=== PATIENT | male | born 1975 | race Caucasian/White ===

== ENCOUNTER 2016-12-26 12:47 | Observation (INO) | payer MEDICARE ==
[~2016-12-26] VITALS: Ht 170.2 cm; Wt 66.0 kg
[~2016-12-26 12:47] MED LIST: AMLO10 PO; CLON.2 PO; HYDR-3129 PO; LABE100 PO; TUMS500C PO; XANA0.5T PO
[2016-12-26 12:49] VITALS: BP 178/85; PULSE 92; RESP 18; TEMP 98.6; O2SAT 99
--- NOTE | 2016-12-26 12:53 | PD ---
Physical Exam Date Seen by Provider: December 26, 2016 Time Seen by Provider: 12:51 Narrative 41 year old male presents to the emergency department for evaluation of shortness of breath, anxiety. He moved here from [place] on Saturday. He has history of ESRD and is on hemodialysis. He is to get dialysis Saturday, Saturday, Saturday. Last dialysis was 12-19-2016. Vital signs reviewed. Patient awaiting bed placement. Data Data Last Documented VS Vital Signs Date Time Temp Pulse Resp B/P Pulse Ox O2 Delivery O2 Flow Rate FiO2 12/26/16 12:49 98.6 92 18 178/85 99 MDM Supervised Visit with FANY: Gena Ontiveros December 26, 2016 12:53
[2016-12-26 13:14] VITALS: BP 159/79; PULSE 87; RESP 18; O2SAT 100; O2SAT 98
[2016-12-26] MEDS ORDERED: SODIUM CHLORIDE 0.9% FLUSH 10 ML FLUSH IVF PRN (13:15)
--- NOTE | 2016-12-26 13:16 | PD ---
HPI Chief Complaint: Complaint Time Seen by Provider: 13:14 Travel History International Travel<30 days: No Contact w/Intl Traveler<30days: No Traveled to known affect area: No History of Present Illness HPI 41-year-old male with history of end-stage renal disease on dialysis, recently moved to the area from [place], and states that he thought his dialysis has been set up but it is not, he states he had followed up with Dr. Don in the past. He has not had a dialysis since Saturday. He states that he is getting nervous that he is going to run to do trouble with his renal failure. He states he has been having some mild shortness of breath and tingling all over. He denies chest pains, vomiting, or other issues. Modifying Factors: None Associated Signs & Symptoms: Needs dialysis, paresthesias, shortness of breath Risk Factors: Previous history of anxiety attacks, end-stage renal on dialysis, missed dialysis since Saturday PFS Past Medical History Anxiety: Yes Cancer: No Cardiovascular Problems: Yes (HTN) Congestive Heart Failure: Yes Dialysis: Yes (M,W,F) Diminished Hearing: No Endocrine: No Genitourinary: Yes Hypertension: Yes Immune Disorder: No Implanted Vascular Access Dvce: Yes (left forearm fisula graft ) Musculoskeletal: No Neurologic: No Psychiatric: Yes Reproductive: No Respiratory: No Immunizations Current: Yes Renal Failure: Yes (4TH STAGE RENAL DISEASE) Shingles: Yes Past Surgical History Appendectomy: Yes Endocrine Surgery: Yes (right kidney transplant in 96 removed in 98 nonfunctional) Thoracic Surgery: Yes (PARATHYROID REMOVED) Other Surgery: Yes (several AV fisula's bilat arms-only current functional one is left FA) Social History Alcohol Use: No Tobacco Use: Yes (1 PPD) Substance Use: No Allergies-Medications (Allergen,Severity, Reaction): Coded Allergies: Cipro (Verified Allergy, Severe, THROAT SWELLS, 12/26/16) Reported Meds & Prescriptions Reported Meds & Active Scripts Active Reported Tums (Calcium Carbonate) 500 Mg Chew 500 Mg PO BID PRN Xanax 0.5 mg (Alprazolam) Alprazolam 0.5 mg Tab 0.5 Mg PO BID TAKES HS AND ON DIALYSIS DAYS [place] 10/325 (Hydrocodone-Acetaminophen 10325) 1 Tab Tab 1 Tab PO TID PRN Trandate 100 mg Tab (Labetalol HCl) 100 Mg Tab 50 Mg PO DAILY Catapres 0.2 mg (Clonidine HCl) 0.2 Mg Tab 0.2 Mg PO DIRECTED PRN Norvasc (Amlodipine Besylate) 10 Mg Tab 10 Mg PO DAILY Review of Systems Except as stated in HPI: all other systems reviewed are Neg Physical Exam Narrative GENERAL: Well-developed middle age L patient currently in mild distress at rest. Awake and oriented 3. SKIN: Focused skin assessment warm/dry. HEAD: Atraumatic. Normocephalic. EYES: Pupils equal and round. No scleral icterus. No injection or drainage. ENT: No nasal bleeding or discharge. Mucous membranes pink and moist. NECK: Trachea midline. No JVD. CARDIOVASCULAR: Regular rate and rhythm. No murmur appreciated. RESPIRATORY: No accessory muscle use. Clear to auscultation. Breath sounds equal bilaterally. GASTROINTESTINAL: Abdomen soft, non-tender, nondistended. Hepatic and splenic margins not palpable. MUSCULOSKELETAL: No obvious deformities. No clubbing. No cyanosis. No edema. NEUROLOGICAL: Awake and alert. No obvious cranial nerve deficits. Motor grossly within normal limits. Normal speech. PSYCHIATRIC: Appropriate mood and affect; insight and judgment normal. Data Data Last Documented VS Vital Signs Date Time Temp Pulse Resp B/P Pulse Ox O2 Delivery O2 Flow Rate FiO2 12/26/16 13:14 98 Room Air 12/26/16 13:14 87 18 159/79 12/26/16 12:49 98.6 Orders Complete Blood Count With Diff (12/26/16 13:08) Comprehensive Metabolic Panel (12/26/16 13:08) B-Type Natriuretic Peptide (12/26/16 13:08) Act Partial Throm Time (Ptt) (12/26/16 13:08) Prothrombin Time / Inr (Pt) (12/26/16 13:08) Iv Access Insert/Monitor (12/26/16 13:08) Electrocardiogram (12/26/16 13:08) Ecg Monitoring (12/26/16 13:08) Oximetry (12/26/16 13:08) Oxygen Administration (12/26/16 13:08) Chest, Single Ap (12/26/16 13:08) Sodium Chloride 0.9% Flush (Ns Flush) (12/26/16 13:15) Consult Nephrology (12/26/16 ) Admit Order (Ed Use Only) (12/26/16 14:31) Labs Laboratory Tests Test 12/26/16 12/26/16 13:13 13:50 Prothrombin Time 12.1 SEC Prothromb Time International 1.1 RATIO Ratio Activated Partial 33.3 SEC Thromboplast Time Sodium Level 134 MEQ/L Potassium Level 5.6 MEQ/L Chloride Level 95 MEQ/L Carbon Dioxide Level 23.5 MEQ/L Anion Gap 16 MEQ/L Blood Urea Nitrogen 76 MG/DL Creatinine 13.89 MG/DL Estimat Glomerular Filtration 4 ML/MIN Rate Random Glucose 99 MG/DL Calcium Level 6.0 MG/DL Protein Corrected Calcium 5.9 MG/DL Total Bilirubin 0.5 MG/DL Aspartate Amino Transf 18 U/L (AST/SGOT) Alanine Aminotransferase 15 U/L (ALT/SGPT) Alkaline Phosphatase 80 U/L B-Type Natriuretic Peptide 788 PG/ML Total Protein 7.6 GM/DL Albumin 3.6 GM/DL White Blood Count 3.9 TH/MM3 Red Blood Count 3.05 MIL/MM3 Hemoglobin 10.1 GM/DL Hematocrit 29.5 % Mean Corpuscular Volume 96.7 FL Mean Corpuscular Hemoglobin 33.1 PG Mean Corpuscular Hemoglobin 34.3 % Concent Red Cell Distribution Width 14.9 % Platelet Count 106 TH/MM3 Mean Platelet Volume 7.8 FL Neutrophils (%) (Auto) 61.4 % Lymphocytes (%) (Auto) 23.0 % Monocytes (%) (Auto) 9.3 % Eosinophils (%) (Auto) 5.5 % Basophils (%) (Auto) 0.8 % Neutrophils # (Auto) 2.4 TH/MM3 Lymphocytes # (Auto) 0.9 TH/MM3 Monocytes # (Auto) 0.4 TH/MM3 Eosinophils # (Auto) 0.2 TH/MM3 Basophils # (Auto) 0.0 TH/MM3 CBC Comment DIFF FINAL Differential Comment MDM Medical Decision Making Medical Screen Exam Complete: Yes Emergency Medical Condition: Yes Medical Record Reviewed: Yes Interpretation(s) EKG shows normal sinus rhythm with peak T waves and a rate of 80 bpm. Indicative of hyperkalemia. Laboratory Tests Test 12/26/16 12/26/16 13:13 13:50 Prothrombin Time 12.1 SEC (9.8-11.6) Activated Partial 33.3 SEC Thromboplast Time (24.3-30.1) Sodium Level 134 MEQ/L (136-145) Potassium Level 5.6 MEQ/L (3.5-5.1) Chloride Level 95 MEQ/L (98-107) Anion Gap 16 MEQ/L (5-15) Blood Urea Nitrogen 76 MG/DL (7-18) Creatinine 13.89 MG/DL (0.60-1.30) Estimat Glomerular Filtration 4 ML/MIN (>89) Rate Calcium Level 6.0 MG/DL (8.5-10.1) Protein Corrected Calcium 5.9 MG/DL (8.5-10.1) B-Type Natriuretic Peptide 788 PG/ML (0-100) White Blood Count 3.9 TH/MM3 (4.0-11.0) Red Blood Count 3.05 MIL/MM3 (4.50-5.90) Hemoglobin 10.1 GM/DL (13.0-17.0) Hematocrit 29.5 % (39.0-51.0) Platelet Count 106 TH/MM3 (150-450) Monocytes (%) (Auto) 9.3 % (0.0-8.0) Eosinophils (%) (Auto) 5.5 % (0.0-4.0) Lymphocytes # (Auto) 0.9 TH/MM3 (1.0-4.8) Last 24 hours Impressions Chest X-Ray 12/26/16 1308 Signed Impressions: Service Date/Time: Monday, December 26, 2016 13:33 - CONCLUSION: No acute disease. Hadley Mobley MD Differential Diagnosis Shortness of breath, paresthesias, needs dialysisevaluate for metabolic issues and acute renal failure Narrative Course Chest x-ray shows no signs of acute pulmonary distress. His EKG shows peaked T' s and his potassium is 5.6. His BUN/creatinine creatinine is quite elevated as well. Patient obviously needs dialysis. Case was discussed with Dr. Don who agrees to dialyze the patient. He states that the patient should be medically admitted. Case is discussed with family practice resident service for admission. Diagnosis Primary Impression: ESRD (end stage renal disease) on dialysis Additional Impressions: Hypocalcemia Hyperkalemia Admitting Information Admitting Physician Requests: Admit Neil June MD December 26, 2016 13:16
[2016-12-26 13:45] LABS: APTT (PATIENT) 33.3 SEC (24.3-30.1); INTERNATIONAL NORMALIZED RATIO 1.1 RATIO; PROTHROMBIN TIME - PATIENT 12.1 SEC (9.8-11.6)
[2016-12-26 13:55] LABS: BICARBONATE 23.5 MEQ/L (21.0-32.0); POTASSIUM 5.6 MEQ/L (3.5-5.1); TOTAL BILIRUBIN ADULT 0.5 MG/DL (0.2-1.0)
[2016-12-26 14:01] LABS: CALCIUM-PROTEIN CORRECTED 5.9 MG/DL (8.5-10.1)
--- NOTE | 2016-12-26 14:12 | RADRPT ---
EXAM DATE/TIME: 12/26/2016 13:33 [facility] COMPARISON: CHEST SINGLE AP, July 12, 2014, 15:12. INDICATIONS : Short of breath for several days. MEDICAL HISTORY : Renal disease, end stage. Congestive heart failure. Hypertension. SURGICAL HISTORY : Appendectomy. Nephrectomy, right. ENCOUNTER: Initial ACUITY: 4 - 6 days PAIN SCORE: 0/10 LOCATION: Bilateral chest FINDINGS: A single view of the chest demonstrates the lungs to be symmetrically aerated without evidence of mas s, infiltrate or effusion. The cardiomediastinal contours are unremarkable. Osseous structures are intact. Scoliosis. CONCLUSION: No acute disease. Hadley Mobley MD on December 26, 2016 at 14:10 Board Certified Radiologist. This report was verified electronically.
[2016-12-26 14:13] LABS: AUTOMATED NEUTROPHIL # 2.4 TH/MM3 (1.8-7.7); BASOPHIL % 0.8 % (0.0-2.0); EOSINOPHIL # 0.2 TH/MM3 (0-0.4); EOSINOPHIL % 5.5 % (0.0-4.0); HEMATOCRIT 29.5 % (39.0-51.0); HEMO FLAGS DIFF FINAL; LYMPHOCYTE # 0.9 TH/MM3 (1.0-4.8); MEAN CELL VOLUME 96.7 FL (80.0-100.0); MEAN CORPUSCULAR HEMOGLOBIN 33.1 PG (27.0-34.0); MEAN CORPUSCULAR HGB CONC 34.3 % (32.0-36.0); MONO % 9.3 % (0.0-8.0); NEUT % 61.4 % (16.0-70.0); PLATELET COUNT 106 TH/MM3 (150-450); RED BLOOD COUNT 3.05 MIL/MM3 (4.50-5.90); RED CELL DISTRIBUTION WIDTH 14.9 % (11.6-17.2); WHITE BLOOD COUNT 3.9 TH/MM3 (4.0-11.0)
[2016-12-26 14:30] VITALS: BP 155/71; PULSE 84; RESP 18; O2SAT 100
--- NOTE | 2016-12-26 14:35 | HHI.HP ---
HPI Service Family Medicine Primary Care Physician Jaun Galicia MD Admission Diagnosis hyperkalemia/chronic renal failure/dialysis Diagnoses: International Travel<30 Days: No Contact w/Intl Traveler<30days: No Known Affected Area: No History of Present Illness 41-year-old male with history of end-stage renal disease gets dialysis Saturday in [place] presents because he has not had dialysis since last Saturday. He thought he had correctly set up dialysis services as an outpatient in [facility], however this was not the case. [facility] and was recommended he come to the ER for dialysis. He has been getting slightly more short of breath over the last couple of days. He has been sleeping upright to avoid fluid overload. Normally he is able to walk miles, but recently he has been laying around because of fatigue. Denies fever , chills. No chest pain. Review of Systems Constitutional: DENIES: Fatigue, Chills Eyes: DENIES: Blurred vision, Diplopia Respiratory: COMPLAINS OF: Cough, Shortness of breath, DENIES: Sputum production Cardiovascular: DENIES: Chest pain, Palpitations Gastrointestinal: DENIES: Abdominal pain, Black stools, Bloody stools, Constipation, Diarrhea, Nausea, Vomiting Musculoskeletal: COMPLAINS OF: Joint pain (joints and back), DENIES: Stiffness Neurologic: DENIES: Abnormal gait, Headache Psychiatric: COMPLAINS OF: Anxiety, DENIES: Confusion Past Family Social History Past Medical History Remote history of seizures Hypocalcemia ESRD Hypertension Status post parathyroidectomy History of kidney transplant which failed Past Surgical History Appendectomy AV fistula Parathyroidectomy Kidney transplant which failed Reported Medications Reported Meds & Active Scripts Active Reported Tums (Calcium Carbonate) 500 Mg Chew 500 Mg PO BID PRN Xanax 0.5 mg (Alprazolam) Alprazolam 0.5 mg Tab 0.5 Mg PO BID TAKES HS AND ON DIALYSIS DAYS Catapres 0.2 mg (Clonidine HCl) 0.2 Mg Tab 0.2 Mg PO DIRECTED PRN "BP gets high and he knows b/c he gets a headache." Norvasc (Amlodipine Besylate) 10 Mg Tab 10 Mg PO DAILY Allergies: Coded Allergies: Cipro (Verified Allergy, Severe, THROAT SWELLS, 12/26/16) Active Ordered Medications Active Medications Sodium Chloride (NS Flush) 2 ml UNSCH PRN IVF; Start 12/26/16 at 13:15 Family History Mom: no medical probs Dad: no medical probs Social History 1 PPD for 20 years. Alcohol: never Illicit: none Physical Exam Vital Signs Vital Signs Date Time Temp Pulse Resp B/P Pulse Ox O2 Delivery O2 Flow Rate FiO2 12/26/16 13:14 98 Room Air 12/26/16 13:14 87 18 159/79 100 Room Air 12/26/16 13:14 99 Room Air 12/26/16 13:14 89 20 12/26/16 12:49 98.6 92 18 178/85 99 Physical Exam GENERAL: This is a well-nourished, well-developed patient, in no apparent distress. SKIN: No rashes, ecchymoses or lesions. Cool and dry. HEAD: Atraumatic. Normocephalic. No temporal or scalp tenderness. EYES: Pupils equal round and reactive. Extraocular motions intact. No scleral icterus. No injection or drainage. ENT: Nose without bleeding, purulent drainage or septal hematoma. Throat without erythema, tonsillar hypertrophy or exudate. Uvula midline. Airway patent. NECK: Trachea midline. No JVD or lymphadenopathy. Supple, nontender, no meningeal signs. CARDIOVASCULAR: Regular rate and rhythm without murmurs, gallops, or rubs. RESPIRATORY: Clear to auscultation. Breath sounds equal bilaterally. No wheezes , rales, or rhonchi. GASTROINTESTINAL: Abdomen soft, non-tender, nondistended. No hepato-splenomegaly , or palpable masses. No guarding. MUSCULOSKELETAL: Extremities without clubbing, cyanosis, or edema. No joint tenderness, effusion, or edema noted. No calf tenderness. Negative Homans sign bilaterally. NEUROLOGICAL: Awake and alert. Cranial nerves II through XII intact. Motor and sensory grossly within normal limits. Five out of 5 muscle strength in all muscle groups. Normal speech. Laboratory Laboratory Tests Test 12/26/16 12/26/16 13:13 13:50 Prothrombin Time 12.1 Prothromb Time International 1.1 Ratio Activated Partial 33.3 Thromboplast Time Sodium Level 134 Potassium Level 5.6 Chloride Level 95 Carbon Dioxide Level 23.5 Anion Gap 16 Blood Urea Nitrogen 76 Creatinine 13.89 Estimat Glomerular Filtration 4 Rate Random Glucose 99 Calcium Level 6.0 Protein Corrected Calcium 5.9 Total Bilirubin 0.5 Aspartate Amino Transf 18 (AST/SGOT) Alanine Aminotransferase 15 (ALT/SGPT) Alkaline Phosphatase 80 B-Type Natriuretic Peptide 788 Total Protein 7.6 Albumin 3.6 White Blood Count 3.9 Red Blood Count 3.05 Hemoglobin 10.1 Hematocrit 29.5 Mean Corpuscular Volume 96.7 Mean Corpuscular Hemoglobin 33.1 Mean Corpuscular Hemoglobin 34.3 Concent Red Cell Distribution Width 14.9 Platelet Count 106 Mean Platelet Volume 7.8 Neutrophils (%) (Auto) 61.4 Lymphocytes (%) (Auto) 23.0 Monocytes (%) (Auto) 9.3 Eosinophils (%) (Auto) 5.5 Basophils (%) (Auto) 0.8 Neutrophils # (Auto) 2.4 Lymphocytes # (Auto) 0.9 Monocytes # (Auto) 0.4 Eosinophils # (Auto) 0.2 Basophils # (Auto) 0.0 CBC Comment DIFF FINAL Differential Comment Result Diagram: 12/26/16 1350 12/26/16 1313 Imaging Last Impressions Chest X-Ray 12/26/16 1308 Signed Impressions: Service Date/Time: Monday, December 26, 2016 13:33 - CONCLUSION: No acute disease. Hadley Mobley MD Assessment and Plan Assessment and Plan 41-year-old male with end-stage renal disease presents because he needs dialysis. Nephrology, Dr. Galicia consulted Code Status Full Problem List: (1) ESRD (end stage renal disease) on dialysis Status: Chronic Plan: Nephrology consult with Dr. Galicia hyperkalemic with peaked t waves on ekg Expect dialysis today or tomorrow. Likely discharge after dialysis Avoid nephrotoxic agents. Careful with IV fluids (2) FEN/PPX Status: Acute Plan: Fluids: Tolerating by mouth, careful with fluids given end-stage renal disease Electrolytes: Monitor and replace as needed Nutrition: Renal diet Prophylaxis: Heparin, bilateral SCDs Chronic medical conditions: Hypertension: Continue amlodipine, clonidine when necessary systolic blood pressure greater than 180 Anxiety: Continue home Xanax Hypocalcemia: Continue tums Physician Certification 2 Midnight Certification Type: Admission for Inpatient Services Order for Inpatient Services The services are ordered in accordance with Medicare regulations or non- Medicare payer requirements, as applicable. In the case of services not specified as inpatient-only, they are appropriately provided as inpatient services in accordance with the 2-midnight benchmark. Estimated LOS (days): 1 days is the estimated time the patient will need to remain in the hospital, assuming treatment plan goals are met and no additional complications. Post-Hospital Plan: Home Delano Vargas MD R2 December 26, 2016 14:34
[2016-12-26] MEDS ORDERED: SODIUM CHLOR 0.9% 1000 ML INJ 1,000 ML IV PRN ×3 (14:43)
[2016-12-26] MEDS ORDERED: ACETAMINOPHEN 325 MG TAB PO PRN (14:45)
[2016-12-26] MEDS ORDERED: cloNIDine HCL 0.1 MG TAB PO PRN (14:45)
[2016-12-26] MEDS ORDERED: EPOETIN ALFA 4,000 UNITS/ML VIAL IV PRN (14:45)
[2016-12-26] MEDS ORDERED: NITROGLYCERIN 0.4 MG SL 25 TABS/BTL SL PRN (14:45)
[2016-12-26] MEDS ORDERED: ALBUMIN HUMAN 25% 25 GM/100 ML BAGP IV PRN (14:45)
[2016-12-26] MEDS ORDERED: ONDANSETRON HCL 4 MG/2 ML VIAL IV PRN (14:45)
[2016-12-26] MEDS ORDERED: MANNITOL 12.5 GM/50 ML VIAL IV PRN (14:45)
[2016-12-26] MEDS ORDERED: HEPARIN SODIUM - IV 10,000 UNITS/10 ML VIAL IVF PRN (14:45)
[2016-12-26] MEDS ORDERED: GELATIN 12 MM/7 MM FOAM TOP PRN (14:45)
[2016-12-26] MEDS ORDERED: SODIUM CHLORIDE 0.9% FLUSH 10 ML FLUSH IV FLUSH PRN ×2 (14:45→15:00)
[2016-12-26] MEDS ORDERED: diphenhydrAMINE HCL 25 MG CAP PO PRN (14:45)
[2016-12-26] MEDS ORDERED: ALPR0.5T3 PO (14:58)
[2016-12-26] MEDS ORDERED: HYDR-3535 PO (15:00)
[2016-12-26] MEDS ORDERED: MAGNESIUM HYDROXIDE SUSP 30 ML CUP PO PRN (15:00)
[2016-12-26] MEDS ORDERED: TUMS500C CHEW (15:00)
[2016-12-26] MEDS ORDERED: CLON0.2T PO (15:00)
[2016-12-26] MEDS ORDERED: AMLO10TA2 PO (15:00)
[2016-12-26] MEDS ORDERED: NALOXONE HCL 0.4 MG/ML AMP IV PRN (15:00)
[2016-12-26] MEDS ORDERED: ONDANSETRON HCL 4 MG/2 ML VIAL IVP PRN (15:00)
--- NOTE | 2016-12-26 15:02 | PD.CONS ---
HPI Service Nephrology Consult Requested By Dr. Choudhary Reason for Consult ESRD Primary Care Physician Jaun Galicia MD History of Present Illness Patient is a 41-year-old male with history of end-stage renal disease, hypertension who has a moved out of the area was living in [facility] and then moved to different places he was trying to get back to however he did not have a spot as an outpatient and missed his dialysis since Saturday, patient came in with increasing tiredness and has hyperkalemia with EKG changes Review of Systems Constitutional: COMPLAINS OF: Fatigue Past Family Social History Allergies: Coded Allergies: Cipro (Verified Allergy, Severe, THROAT SWELLS, 12/26/16) Past Medical History Hypertension ESRD Anemia 3. Hyperparathyroidism Past Surgical History Several forearms the fistula currently a left forearm Kidney transplant placement and removal in 1995 and 1997 Parathyroidectomy Reported Medications Reported Meds & Active Scripts Active Reported Lortab (Hydrocodone-Acetaminophen) 10-325 Mg Tab 1 Tab PO TID PRN Clonidine (Clonidine HCl) 0.2 Mg Tab 0.2 Mg PO DAILY PRN Tums (Calcium Carbonate (Antacid)) 500 Mg Chew 500 Mg CHEW BID Amlodipine (Amlodipine Besylate) 10 Mg Tab 10 Mg PO DAILY Alprazolam 0.5 Mg Tab 0.5 Mg PO BID Family History Noncontributory Social History Smoke cigarettes one pack per day denies alcohol Physical Exam Vital Signs Vital Signs Date Time Temp Pulse Resp B/P Pulse Ox O2 Delivery O2 Flow Rate FiO2 12/26/16 14:30 84 18 155/71 100 Room Air 12/26/16 13:14 98 Room Air 12/26/16 13:14 87 18 159/79 100 Room Air 12/26/16 13:14 99 Room Air 12/26/16 13:14 89 20 12/26/16 12:49 98.6 92 18 178/85 99 Physical Exam GENERAL: Well-nourished, well-developed patient. SKIN: Warm and dry. HEAD: Normocephalic. EYES: No scleral icterus. No injection or drainage. NECK: Supple, trachea midline. No JVD or lymphadenopathy. CARDIOVASCULAR: Regular rate and rhythm without murmurs, gallops, or rubs. RESPIRATORY: Breath sounds equal bilaterally. No accessory muscle use. GASTROINTESTINAL: Abdomen soft, non-tender, nondistended. EXTREMITIES: No cyanosis, or edema. NEUROLOGICAL: Awake, alert, and oriented x 3. Non-focal. Laboratory Laboratory Tests Test 12/26/16 12/26/16 13:13 13:50 Prothrombin Time 12.1 Prothromb Time International 1.1 Ratio Activated Partial 33.3 Thromboplast Time Sodium Level 134 Potassium Level 5.6 Chloride Level 95 Carbon Dioxide Level 23.5 Anion Gap 16 Blood Urea Nitrogen 76 Creatinine 13.89 Estimat Glomerular Filtration 4 Rate Random Glucose 99 Calcium Level 6.0 Protein Corrected Calcium 5.9 Total Bilirubin 0.5 Aspartate Amino Transf 18 (AST/SGOT) Alanine Aminotransferase 15 (ALT/SGPT) Alkaline Phosphatase 80 B-Type Natriuretic Peptide 788 Total Protein 7.6 Albumin 3.6 White Blood Count 3.9 Red Blood Count 3.05 Hemoglobin 10.1 Hematocrit 29.5 Mean Corpuscular Volume 96.7 Mean Corpuscular Hemoglobin 33.1 Mean Corpuscular Hemoglobin 34.3 Concent Red Cell Distribution Width 14.9 Platelet Count 106 Mean Platelet Volume 7.8 Neutrophils (%) (Auto) 61.4 Lymphocytes (%) (Auto) 23.0 Monocytes (%) (Auto) 9.3 Eosinophils (%) (Auto) 5.5 Basophils (%) (Auto) 0.8 Neutrophils # (Auto) 2.4 Lymphocytes # (Auto) 0.9 Monocytes # (Auto) 0.4 Eosinophils # (Auto) 0.2 Basophils # (Auto) 0.0 CBC Comment DIFF FINAL Differential Comment Result Diagram: 12/26/16 1350 12/26/16 1313 Assessment and Plan Problem List: (1) ESRD (end stage renal disease) on dialysis Plan: Getting his dialysis today continue supportive care while in the hospital outpatient arrangements needs to be made He is told to continue with [facility] clinic (2) Hyperkalemia Plan: correct with HD (3) Hypertension Plan: Monitor BP Jaun Galicia MD December 26, 2016 15:02
[2016-12-26] MEDS ORDERED: cloNIDine HCL 0.2 MG TAB PO PRN (15:15)
[2016-12-26] MEDS ORDERED: HEPARIN SODIUM - SQ 10,000 UNITS/ML VIAL SQ SCH ×2 (16:00→20:00)
[2016-12-26 18:52] VITALS: BP 149/72; PULSE 92; RESP 19; TEMP 98.2; O2SAT 100
[2016-12-26 19:36] VITALS: BP 140/65; PULSE 89; RESP 21; TEMP 98.8; O2SAT 100
[2016-12-26] MEDS ORDERED: CALCIUM CARBONATE 500 MG CHEWABLE TAB CHEW SCH (21:00)
[2016-12-26] MEDS ORDERED: ALPRAZolam 0.5 MG TAB PO SCH (21:00)
[2016-12-26] MEDS ORDERED: SODIUM CHLORIDE 0.9% FLUSH 10 ML FLUSH IV FLUSH SCH (21:00)
--- NOTE | 2016-12-26 21:43 | HHI.DCPOC ---
Discharge Care Plan Diagnosis: (1) ESRD (end stage renal disease) on dialysis Goals to Promote Your Health * To prevent worsening of your condition and complications * To maintain your health at the optimal level Directions to Meet Your Goals Take your medications as prescribed Follow your dietary instruction Follow activity as directed Keep your appointments as scheduled Take your immunizations and boosters as scheduled If your symptoms worsen call your PCP, if no PCP go to Urgent Care Center or Emergency Room Smoking is Dangerous to Your Health. Avoid second hand smoke Call the 24-hour hour crisis hotline for domestic abuse at Delano Vargas MD R2 December 26, 2016 21:43
--- NOTE | 2016-12-27 15:38 | EKG ---
Date Performed: 12/26/2016 Time Performed: 13:36:11 PTAGE: 41 years EKG: SINUS TACHYCARDIA WITH FREQUENT VENTRICULAR PREMATURE COMPLEXES IN A BIGEMINAL PATTERN NONS PECIFIC T-WAVE ABNORMALITY ABNORMAL RHYTHM ECG PREVIOUS TRACING : 03/18/2015 02.19 Compared to prior tracing no significant change DOCTOR: Jeffery Collazo Interpretating Date/Time 12/27/2016 15:36:16
== END 2016-12-26 22:26 | disposition home or self-care (01) ==
LOC: NEPC 12:47 → NEDA 14:33 → NEPHCDU 17:30
PROVIDERS: ADMIT Family Medicine; ATTEND Family Medicine
DX: I13.2 Hypertensive heart and chronic kidney disease with heart failure and with stage 5 chronic kidney disease, or end stage renal disease (principal); N18.6 End stage renal disease; I50.9 Heart failure, unspecified; E87.5 Hyperkalemia; E83.51 Hypocalcemia; F41.9 Anxiety disorder, unspecified; F17.210 Nicotine dependence, cigarettes, uncomplicated; Z90.5 Acquired absence of kidney; Z99.2 Dependence on renal dialysis; Z88.1 Allergy status to other antibiotic agents
CPT/HCPCS: 71010; 80053; 80074; 83880; 85025; 85610; 85730; 93005; 96374; 99285; G0257; G0378; J1644; Q4081; 90935

== ENCOUNTER 2016-12-30 12:58 | Emergency (ER) | payer MEDICARE ==
[~2016-12-30] VITALS: Ht 167.6 cm; Wt 66.0 kg
[~2016-12-30 12:58] MED LIST changes: +ALPR0.5T3 PO; -AMLO10 PO; +AMLO10TA2 PO; -CLON.2 PO; +CLON0.2T PO; -HYDR-3129 PO; +HYDR-3535 PO; -LABE100 PO; +TUMS500C CHEW; -TUMS500C PO; -XANA0.5T PO
[2016-12-30 13:00] VITALS: BP 198/89; PULSE 97; RESP 16; TEMP 97.5; O2SAT 99
[2016-12-30] MEDS ORDERED: SODIUM CHLORIDE 0.9% FLUSH 10 ML FLUSH IVF PRN (13:30)
[2016-12-30] MEDS ORDERED: NITROGLYCERIN 2% OINT 1 GM PACKET TOP ONE (13:30)
[2016-12-30] MEDS ORDERED: MORPHINE SULFATE 4 MG/ML INJ IV PUSH ONE ×2 (13:30→15:15)
[2016-12-30] MEDS ORDERED: ONDANSETRON HCL 4 MG/2 ML VIAL IV PUSH ONE (13:30)
--- NOTE | 2016-12-30 13:34 | PD ---
HPI . Shortness of breath Chief Complaint: Respiratory Symptoms Time Seen by Provider: 13:23 Travel History International Travel<30 days: No Contact w/Intl Traveler<30days: No Traveled to known affect area: No History of Present Illness HPI Patient presents with shortness of breath. He is in a state renal disease patient on hemodialysis. He reports that he has recently moved here from [place]. He was seen here in the emergency department on 12/26 and was emergently dialyzed. Arrangements were reportedly made for him to start dialysis here in [facility] on 12/28. He states that he went to the dialysis Center that day but that his "papers work right" and that he was unable to dialyze. He has had increasing shortness of breath since that time the CA with upper body edema. He subsequently presents back to us today. Symptoms are exacerbated by lack of dialysis. Symptoms are improved with dialysis. PFSH Past Medical History Anxiety: Yes Cancer: No Cardiovascular Problems: Yes (HTN) Congestive Heart Failure: Yes Dialysis: Yes (M,W,F) Diminished Hearing: No Endocrine: No Genitourinary: Yes Hypertension: Yes Immune Disorder: No Implanted Vascular Access Dvce: Yes (left forearm fisula graft ) Musculoskeletal: No Neurologic: No Psychiatric: Yes Reproductive: No Respiratory: No Immunizations Current: Yes Renal Failure: Yes (4TH STAGE RENAL DISEASE) Shingles: Yes Influenza Vaccination: No Past Surgical History Appendectomy: Yes Endocrine Surgery: Yes (right kidney transplant in 96 removed in 98 nonfunctional) Thoracic Surgery: Yes (PARATHYROID REMOVED) Other Surgery: Yes (several AV fisula's bilat arms-only current functional one is left FA) Social History Alcohol Use: No Tobacco Use: Yes (1 PPD) Substance Use: No Allergies-Medications (Allergen,Severity, Reaction): Coded Allergies: Cipro (Verified Allergy, Severe, THROAT SWELLS, 12/30/16) Reported Meds & Prescriptions Reported Meds & Active Scripts Active Reported Lortab (Hydrocodone-Acetaminophen) 10-325 Mg Tab 1 Tab PO TID PRN Clonidine (Clonidine HCl) 0.2 Mg Tab 0.2 Mg PO DAILY PRN Tums (Calcium Carbonate (Antacid)) 500 Mg Chew 500 Mg CHEW BID Amlodipine (Amlodipine Besylate) 10 Mg Tab 10 Mg PO DAILY Alprazolam 0.5 Mg Tab 0.5 Mg PO BID Physical Exam Narrative GENERAL: uremic hue. SKIN: Warm and dry. HEAD: Atraumatic. Normocephalic. His face is puffy. EYES: Pupils equal and round. Extraocular movements are intact. ENT: No nasal bleeding or discharge. Mucous membranes pink and moist. NECK: Trachea midline. Neck is supple. CARDIOVASCULAR: Regular rate and rhythm. AV shunt in the left upper extremity with a good thrill. RESPIRATORY: No accessory muscle use. Lungs sound clear. GASTROINTESTINAL: Abdomen soft, non-tender, nondistended. MUSCULOSKELETAL: Significant scoliosis is noted in the upper back. No peripheral edema. NEUROLOGICAL: Awake and alert. No obvious cranial nerve deficits. Motor grossly within normal limits. Normal speech. PSYCHIATRIC: Appropriate mood and affect; insight and judgment normal. Data Data Last Documented VS Vital Signs Date Time Temp Pulse Resp B/P Pulse Ox O2 Delivery O2 Flow Rate FiO2 12/30/16 14:40 88 18 170/77 97 Nasal Cannula 2 12/30/16 13:00 97.5 Orders Electrocardiogram (12/30/16 13:27) Basic Metabolic Panel (Bmp) (12/30/16 13:27) Complete Blood Count With Diff (12/30/16 13:27) Chest, Single Ap (12/30/16 13:27) Ecg Monitoring (12/30/16 13:27) Iv Access Insert/Monitor (12/30/16 13:27) Oximetry (12/30/16 13:27) Morphine Inj (Morphine Inj) (12/30/16 13:30) Nitroglycerin 2% Oint (Nitroglycerin 2% (12/30/16 13:30) Sodium Chloride 0.9% Flush (Ns Flush) (12/30/16 13:30) Ondansetron Inj (Zofran Inj) (12/30/16 13:30) Protein Corrected Calcium(Pcc) (12/30/16 13:43) Dialysis Request (12/30/16 14:53) Morphine Inj (Morphine Inj) (12/30/16 15:15) Insulin Human Regular Inj (Novolin R Inj (12/30/16 15:30) Dextrose 50% In Leobardo (Vial) Inj (D50w (Vi (12/30/16 15:30) Sodium Bicarbonate 8.4% Inj (Sodium Bica (12/30/16 15:30) Sodium Polysty Sulfate Liq (Kayexalate L (12/30/16 15:30) Calcium Chloride Inj (Calcium Chloride I (12/30/16 15:30) ^ Blood Flow Rate (12/30/16 15:43) ^ Dialysate Flow Rate (12/30/16 15:43) ^ Dialyzer (12/30/16 15:43) ^ Concentrate (12/30/16 15:43) ^ Acid Concentrate (12/30/16 15:43) ^ Length Of Dialysis (12/30/16 15:43) ^ Frequency Of Dialysis (12/30/16 15:43) ^ Dialysis Obtain (12/30/16 15:43) ^ Needle Size (12/30/16 15:43) ^ Dialysis Schedule (12/30/16:43) Resp Oxygen Macho C Titrat 1-4 L (12/30/16 ) ^ Dialysis Weight (12/30/16 15:43) ^ Obtain As Needed (12/30/16 15:43) Sodium Chlor 0.9% 1000 Ml Inj (Ns 1000 M (12/30/16 15:43) Heparin Inj (Heparin Inj) (12/30/16 15:45) Sodium Chlor 0.9% 1000 Ml Inj (Ns 1000 M (12/30/16 15:43) Sodium Chlor 0.9% 1000 Ml Inj (Ns 1000 M (12/30/16 15:43) Mannitol Inj (Mannitol Inj) (12/30/16 15:45) Albumin 25% Inj (Albumin 25% Inj) (12/30/16 15:45) Sodium Chloride 0.9% Flush (Ns Flush) (12/30/16 15:45) Ondansetron Inj (Zofran Inj) (12/30/16 15:45) Acetaminophen (Tylenol) (12/30/16 15:45) Diphenhydramine (Benadryl) (12/30/16 15:45) Nitroglycerin Sl (Nitrostat Sl) (12/30/16 15:45) Clonidine (Catapres) (12/30/16 15:45) Gelatin 12 Mm/7 Mm Top (Gelfoam 12 Mm/7 (12/30/16 15:45) Labs Laboratory Tests Test 12/30/16 13:43 White Blood Count 5.1 TH/MM3 Red Blood Count 3.12 MIL/MM3 Hemoglobin 10.3 GM/DL Hematocrit 30.4 % Mean Corpuscular Volume 97.4 FL Mean Corpuscular Hemoglobin 33.1 PG Mean Corpuscular Hemoglobin 34.0 % Concent Red Cell Distribution Width 15.3 % Platelet Count 113 TH/MM3 Mean Platelet Volume 7.7 FL Neutrophils (%) (Auto) 68.2 % Lymphocytes (%) (Auto) 17.6 % Monocytes (%) (Auto) 8.3 % Eosinophils (%) (Auto) 5.6 % Basophils (%) (Auto) 0.3 % Neutrophils # (Auto) 3.5 TH/MM3 Lymphocytes # (Auto) 0.9 TH/MM3 Monocytes # (Auto) 0.4 TH/MM3 Eosinophils # (Auto) 0.3 TH/MM3 Basophils # (Auto) 0.0 TH/MM3 CBC Comment DIFF FINAL Differential Comment Sodium Level 134 MEQ/L Potassium Level 6.4 MEQ/L Chloride Level 97 MEQ/L Carbon Dioxide Level 23.7 MEQ/L Anion Gap 13 MEQ/L Blood Urea Nitrogen 82 MG/DL Creatinine 14.71 MG/DL Estimat Glomerular Filtration 4 ML/MIN Rate Random Glucose 121 MG/DL Calcium Level 5.6 MG/DL Protein Corrected Calcium 5.5 MG/DL Total Protein 7.6 GM/DL MDM Medical Decision Making Medical Screen Exam Complete: Yes Emergency Medical Condition: Yes Medical Record Reviewed: Yes (records reviewed. Patient was seen here on . He had hyperkalemia at that time and was emergently dialyzed. His potassium was 5.6.) Interpretation(s) EKG shows a normal sinus rhythm. He does have peaked T waves. However, it is not appreciably different from previous. Differential Diagnosis Differential diagnosis of dyspnea includes but is not limited to congestive heart failure, pneumonia, wheezing, pneumothorax, pulmonary embolism Narrative Course This is an end-stage renal disease patient on hemodialysis last dialyzed 4 days ago who presents complaining with increasing shortness of breath. I will check an EKG, chest x-ray and electrolytes. Last Impressions Chest X-Ray 12/30/16 2278 Signed Impressions: Service Date/Time: Friday, December 30, 2016 13:45 - CONCLUSION: Cardiomegaly with central pulmonary vascular congestion. Hadley Mobley MD The chest x-ray was independently viewed by me. CBC & BMP Diagram 12/30/16 13:43 I will consult nephrology for dialysis. Physician Communication Physician Communication Dr. Galicia will arrange for dialysis. However, will be several hours. Therefore , we need to treat his hyperkalemia. Dr. Galicia has asked that I just keep the patient in the emergency department pending dialysis. Diagnosis Primary Impression: ESRD (end stage renal disease) on dialysis Additional Impression: Hyperkalemia Condition: Stable Shelley Dimas MD December 30, 2016 13:34
--- NOTE | 2016-12-30 13:47 | RADRPT ---
EXAM DATE/TIME: 12/30/2016 13:45 [facility] COMPARISON: CHEST SINGLE AP, December 26, 2016, 13:33. INDICATIONS : Short of breath MEDICAL HISTORY : Renal disease, end stage. Congestive heart failure. Hypertension. SURGICAL HISTORY : Renal disease, end stage. Congestive heart failure. Hypertension. ENCOUNTER: Initial ACUITY: 2 days PAIN SCORE: 0/10 LOCATION: Bilateral chest FINDINGS: A single view of the chest demonstrates the lungs to be symmetrically aerated without evidence of mas s, infiltrate or effusion. Cardiomegaly with central pulmonary vascular congestion The cardiomediast inal contours are unremarkable. Osseous structures are intact. CONCLUSION: Cardiomegaly with central pulmonary vascular congestion. Hadley Mobley MD on December 30, 2016 at 13:44 Board Certified Radiologist. This report was verified electronically.
[2016-12-30 14:10] VITALS: BP 170/77; PULSE 88; RESP 18; O2SAT 96
[2016-12-30 14:10] LABS: AUTOMATED NEUTROPHIL # 3.5 TH/MM3 (1.8-7.7); BASOPHIL % 0.3 % (0.0-2.0); EOSINOPHIL # 0.3 TH/MM3 (0-0.4); EOSINOPHIL % 5.6 % (0.0-4.0); HEMATOCRIT 30.4 % (39.0-51.0); HEMO FLAGS DIFF FINAL; LYMPH % 17.6 % (9.0-44.0); LYMPHOCYTE # 0.9 TH/MM3 (1.0-4.8); MEAN CELL VOLUME 97.4 FL (80.0-100.0); MEAN CORPUSCULAR HEMOGLOBIN 33.1 PG (27.0-34.0); MONO % 8.3 % (0.0-8.0); NEUT % 68.2 % (16.0-70.0); PLATELET COUNT 113 TH/MM3 (150-450); RED BLOOD COUNT 3.12 MIL/MM3 (4.50-5.90); RED CELL DISTRIBUTION WIDTH 15.3 % (11.6-17.2); WHITE BLOOD COUNT 5.1 TH/MM3 (4.0-11.0)
[2016-12-30 14:40] VITALS: BP 170/77; PULSE 88; RESP 18; O2SAT 97
[2016-12-30 14:48] LABS: BICARBONATE 23.7 MEQ/L (21.0-32.0); POTASSIUM 6.4 MEQ/L (3.5-5.1)
[2016-12-30 15:05] LABS: CALCIUM-PROTEIN CORRECTED 5.5 MG/DL (8.5-10.1)
[2016-12-30] MEDS ORDERED: CALCIUM CHLORIDE 10% SOLN 1 GRAM/10 ML SYR IV PUSH ONE (15:30)
[2016-12-30] MEDS ORDERED: INSULIN HUMAN REGULAR 1,000 UNITS/10 ML VIAL IV PUSH ONE (15:30)
[2016-12-30] MEDS ORDERED: SODIUM POLYSTYRENE SULFONATE SUSP 15 GM/60 ML CUP PO ONE (15:30)
[2016-12-30] MEDS ORDERED: DEXTROSE 50% IN WATER 50 ML VIAL(D50) IV PUSH ONE (15:30)
[2016-12-30] MEDS ORDERED: SODIUM BICARBONATE 8.4% INJ 50 MEQ/50 ML SYR IV PUSH ONE (15:30)
--- NOTE | 2016-12-30 15:37 | PD.CONS ---
HPI Service Nephrology Consult Requested By Dr. Dimas Reason for Consult ESRD Primary Care Physician Jaun Galicia MD History of Present Illness 41 Year old male with ESRD, Hypertension recently discharged from [place] came back as could not get a spot at [facility] and missed dialysis on Saturday, he moved from [facility]. He complaints of facial edema, shortness of breath, having potassium of 6.4. Review of Systems Constitutional: COMPLAINS OF: Fatigue, Weight gain Respiratory: COMPLAINS OF: Shortness of breath Cardiovascular: COMPLAINS OF: Dyspnea on Exertion Psychiatric: COMPLAINS OF: Anxiety Past Family Social History Allergies: Coded Allergies: Cipro (Verified Allergy, Severe, THROAT SWELLS, 12/30/16) Past Medical History Hypertension ESRD Anemia Hyperparathyroidism Hx of seizure Past Surgical History Several forearms the fistula currently a left forearm Kidney transplant placement and removal in 1995 and 1997 Parathyroidectomy Reported Medications Reported Meds & Active Scripts Active Reported Lortab (Hydrocodone-Acetaminophen) 10-325 Mg Tab 1 Tab PO TID PRN Clonidine (Clonidine HCl) 0.2 Mg Tab 0.2 Mg PO DAILY PRN Tums (Calcium Carbonate (Antacid)) 500 Mg Chew 500 Mg CHEW BID Amlodipine (Amlodipine Besylate) 10 Mg Tab 10 Mg PO DAILY Alprazolam 0.5 Mg Tab 0.5 Mg PO BID Active Ordered Medications Reported Meds & Active Scripts Active Reported Lortab (Hydrocodone-Acetaminophen) 10-325 Mg Tab 1 Tab PO TID PRN Clonidine (Clonidine HCl) 0.2 Mg Tab 0.2 Mg PO DAILY PRN Tums (Calcium Carbonate (Antacid)) 500 Mg Chew 500 Mg CHEW BID Amlodipine (Amlodipine Besylate) 10 Mg Tab 10 Mg PO DAILY Alprazolam 0.5 Mg Tab 0.5 Mg PO BID Family History noncontributory Social History 1 PPD smoking cigarettes, denies ETOH Physical Exam Vital Signs Vital Signs Date Time Temp Pulse Resp B/P Pulse Ox O2 Delivery O2 Flow Rate FiO2 12/30/16 14:40 88 18 170/77 97 Nasal Cannula 2 12/30/16 14:10 88 18 170/77 96 Nasal Cannula 2 12/30/16 14:00 20 12/30/16 13:00 97.5 97 16 198/89 99 Physical Exam GENERAL: Well-nourished, well-developed patient. SKIN: Warm and dry. HEAD: Normocephalic. EYES: No scleral icterus. No injection or drainage. NECK: Supple, trachea midline. No JVD or lymphadenopathy. CARDIOVASCULAR: Regular rate and rhythm without murmurs, gallops, or rubs. RESPIRATORY: Breath sounds Diminished at bases, occasional rhonchi GASTROINTESTINAL: Abdomen soft, non-tender, nondistended. EXTREMITIES: No cyanosis, or edema. NEUROLOGICAL: Awake, alert, and oriented x 3. Non-focal. Laboratory Laboratory Tests Test 12/30/16 13:43 White Blood Count 5.1 Red Blood Count 3.12 Hemoglobin 10.3 Hematocrit 30.4 Mean Corpuscular Volume 97.4 Mean Corpuscular Hemoglobin 33.1 Mean Corpuscular Hemoglobin 34.0 Concent Red Cell Distribution Width 15.3 Platelet Count 113 Mean Platelet Volume 7.7 Neutrophils (%) (Auto) 68.2 Lymphocytes (%) (Auto) 17.6 Monocytes (%) (Auto) 8.3 Eosinophils (%) (Auto) 5.6 Basophils (%) (Auto) 0.3 Neutrophils # (Auto) 3.5 Lymphocytes # (Auto) 0.9 Monocytes # (Auto) 0.4 Eosinophils # (Auto) 0.3 Basophils # (Auto) 0.0 CBC Comment DIFF FINAL Differential Comment Sodium Level 134 Potassium Level 6.4 Chloride Level 97 Carbon Dioxide Level 23.7 Anion Gap 13 Blood Urea Nitrogen 82 Creatinine 14.71 Estimat Glomerular Filtration 4 Rate Random Glucose 121 Calcium Level 5.6 Protein Corrected Calcium 5.5 Total Protein 7.6 Result Diagram: 12/30/16 1343 12/30/16 1343 Imaging Last Impressions Chest X-Ray 12/30/16 1327 Signed Impressions: Service Date/Time: Friday, December 30, 2016 13:45 - CONCLUSION: Cardiomegaly with central pulmonary vascular congestion. Hadley Mobley MD Assessment and Plan Problem List: (1) ESRD (end stage renal disease) on dialysis Plan: Hemodialysis will be planned for today 1 K bath 2 hrs and get 3 L off next HD tomorrow as out patient stop smoking, watch fluid and potassium intake. (2) Hypertension Plan: monitor Jaun Galicia MD December 30, 2016 15:37
[2016-12-30] MEDS ORDERED: SODIUM CHLOR 0.9% 1000 ML INJ 1,000 ML IV PRN ×3 (15:43)
[2016-12-30] MEDS ORDERED: MANNITOL 12.5 GM/50 ML VIAL IV PRN (15:45)
[2016-12-30] MEDS ORDERED: GELATIN 12 MM/7 MM FOAM TOP PRN (15:45)
[2016-12-30] MEDS ORDERED: NITROGLYCERIN 0.4 MG SL 25 TABS/BTL SL PRN (15:45)
[2016-12-30] MEDS ORDERED: ALBUMIN HUMAN 25% 25 GM/100 ML BAGP IV PRN (15:45)
[2016-12-30] MEDS ORDERED: ACETAMINOPHEN 325 MG TAB PO PRN (15:45)
[2016-12-30] MEDS ORDERED: HEPARIN SODIUM - IV 10,000 UNITS/10 ML VIAL IVF PRN (15:45)
[2016-12-30] MEDS ORDERED: diphenhydrAMINE HCL 25 MG CAP PO PRN (15:45)
[2016-12-30] MEDS ORDERED: SODIUM CHLORIDE 0.9% FLUSH 10 ML FLUSH IV FLUSH PRN (15:45)
[2016-12-30] MEDS ORDERED: cloNIDine HCL 0.1 MG TAB PO PRN (15:45)
[2016-12-30] MEDS ORDERED: ONDANSETRON HCL 4 MG/2 ML VIAL IV PRN (15:45)
[2016-12-30 16:58] VITALS: BP 172/79; PULSE 76; RESP 18; O2SAT 94
[2016-12-30 19:36] VITALS: BP 180/79; PULSE 77; RESP 18; O2SAT 100
--- NOTE | 2016-12-31 14:42 | EKG ---
Date Performed: 12/30/2016 Time Performed: 13:34:44 PTAGE: 41 years EKG: Sinus rhythm PROLONGED QT INTERVAL ABNORMAL ECG PREVIOUS TRACING : 12/26/2016 13.36 Since prior tracing, sinus rhythm has lowered. QT interval is longer. DOCTOR: Wally Santa Interpretating Date/Time 12/31/2016 14:39:22
== END 2016-12-30 20:36 | disposition home or self-care (01) ==
LOC: NEPC 12:58
DX: E11.22 Type 2 diabetes mellitus with diabetic chronic kidney disease (principal); I12.0 Hypertensive chronic kidney disease with stage 5 chronic kidney disease or end stage renal disease; N18.6 End stage renal disease; E87.5 Hyperkalemia; R94.31 Abnormal electrocardiogram [ECG] [EKG]; F17.210 Nicotine dependence, cigarettes, uncomplicated; Z99.2 Dependence on renal dialysis; Z79.899 Other long term (current) drug therapy
CPT/HCPCS: 71010; 80048; 84155; 85025; 93005; 96374; 96375; 96376; 99285; G0257; J1815; J2270; J2405; 90935

== ENCOUNTER 2017-01-27 13:23 | Emergency (ER) | payer MEDICARE ==
[~2017-01-27] VITALS: Ht 167.6 cm; Wt 59.0 kg
[2017-01-27 13:27] VITALS: BP 137/88; PULSE 64; RESP 16; TEMP 98.2; O2SAT 98
[2017-01-27] MEDS ORDERED: SODIUM CHLORIDE 0.9% FLUSH 10 ML FLUSH IV FLUSH PRN (14:15)
--- NOTE | 2017-01-27 14:29 | PD ---
HPI Chief Complaint: General Weakness Time Seen by Provider: 14:00 Travel History International Travel<30 days: No Contact w/Intl Traveler<30days: No Traveled to known affect area: No History of Present Illness HPI 42 YO M with PMH of scoliosis, ESRD (on dialysis MWF,followed by Dr. Galicia) presents to the ED for evaluation of 2 day history of malaise, shaking chills, pruritus. Has not measured a fever at home. Symptoms onset suddenly while getting dialysis two days ago. The patient states that there was "some kind of problem with the water" during his treatment and thinks this may be the cause for his symptoms. Denies rash, CHATMAN, dizziness, CP, palpitations, SOB, N/V, anorexia, abdominal pain, back pain, weakness of the extremities. Treated with Benadryl with no improvement of symptoms. PFSH Past Medical History Anxiety: Yes Cancer: No Cardiovascular Problems: Yes (HTN) Congestive Heart Failure: Yes Dialysis: Yes (M,W,F) Diminished Hearing: No Endocrine: No Genitourinary: Yes Hypertension: Yes Immune Disorder: No Implanted Vascular Access Dvce: Yes (left forearm fisula graft ) Musculoskeletal: No Neurologic: No Psychiatric: Yes Reproductive: No Respiratory: No Immunizations Current: Yes Renal Failure: Yes Shingles: Yes Past Surgical History Abdominal Surgery: Yes (PERITONEAL DIALYSIS CATH INSERT/REMOVAL) Appendectomy: Yes Endocrine Surgery: Yes (right kidney transplant in 96 removed in 98 nonfunctional) Thoracic Surgery: Yes (PARATHYROID REMOVED) Other Surgery: Yes (several AV fisula's bilat arms-only current functional one is left FA) Social History Alcohol Use: No Tobacco Use: Yes (1 PPD) Substance Use: No Allergies-Medications (Allergen,Severity, Reaction): Coded Allergies: Cipro (Verified Allergy, Severe, THROAT SWELLS, 12/30/16) Reported Meds & Prescriptions Reported Meds & Active Scripts Active Vistaril (Hydroxyzine Pamoate) 50 Mg Cap 50 Mg PO TID PRN Reported Lortab (Hydrocodone-Acetaminophen) 10-325 Mg Tab 1 Tab PO TID PRN Clonidine (Clonidine HCl) 0.2 Mg Tab 0.2 Mg PO DAILY PRN Tums (Calcium Carbonate (Antacid)) 500 Mg Chew 500 Mg CHEW BID Amlodipine (Amlodipine Besylate) 10 Mg Tab 10 Mg PO DAILY Alprazolam 0.5 Mg Tab 0.5 Mg PO BID Review of Systems Except as stated in HPI: all other systems reviewed are Neg Physical Exam Narrative GENERAL: Well-nourished, well-developed white male in NAD. SKIN: Focused skin assessment warm/dry. Chronic skin changes, no rashes noted. Several excoriated areas noted. HEAD: Normocephalic. EYES: No scleral icterus. No injection or drainage. PERRLA. NECK: Supple, trachea midline. No JVD or lymphadenopathy. CARDIOVASCULAR: Regular rate and rhythm without murmurs, gallops, or rubs. 2+DP and radial pulses bilaterally. RESPIRATORY: Breath sounds clear and equal bilaterally. No accessory muscle use. GASTROINTESTINAL: Abdomen soft, non-tender, nondistended. Active bowel sounds. MUSCULOSKELETAL: No cyanosis, or edema. BACK: Nontender. Scoliotic. No CVA tenderness. Data Data Last Documented VS Vital Signs Date Time Temp Pulse Resp B/P Pulse Ox O2 Delivery O2 Flow Rate FiO2 01/27/17 14:23 Room Air 01/27/17 13:27 98.2 64 16 137/88 98 Orders Complete Blood Count With Diff (01/27/17 14:05) Comprehensive Metabolic Panel (01/27/17 14:05) Prothrombin Time / Inr (Pt) (01/27/17 14:05) Act Partial Throm Time (Ptt) (01/27/17 14:05) Iv Access Insert/Monitor (01/27/17 14:05) Ecg Monitoring (01/27/17 14:05) Oximetry (01/27/17 14:05) Sodium Chloride 0.9% Flush (Ns Flush) (01/27/17 14:15) Hydroxyzine Pamoate (Vistaril) (01/27/17 14:15) Calcium Carbonate (Oscal) (01/27/17 15:15) Labs Laboratory Tests Test 01/27/17 14:20 White Blood Count 6.5 TH/MM3 Red Blood Count 3.95 MIL/MM3 Hemoglobin 12.9 GM/DL Hematocrit 38.1 % Mean Corpuscular Volume 96.3 FL Mean Corpuscular Hemoglobin 32.6 PG Mean Corpuscular Hemoglobin 33.8 % Concent Red Cell Distribution Width 15.7 % Platelet Count 143 TH/MM3 Mean Platelet Volume 8.2 FL Neutrophils (%) (Auto) 62.1 % Lymphocytes (%) (Auto) 14.2 % Monocytes (%) (Auto) 6.2 % Eosinophils (%) (Auto) 16.8 % Basophils (%) (Auto) 0.7 % Neutrophils # (Auto) 4.0 TH/MM3 Lymphocytes # (Auto) 0.9 TH/MM3 Monocytes # (Auto) 0.4 TH/MM3 Eosinophils # (Auto) 1.1 TH/MM3 Basophils # (Auto) 0.0 TH/MM3 CBC Comment DIFF FINAL Differential Comment Prothrombin Time 11.2 SEC Prothromb Time International 1.0 RATIO Ratio Activated Partial 31.3 SEC Thromboplast Time Sodium Level 134 MEQ/L Potassium Level 6.1 MEQ/L Chloride Level 101 MEQ/L Carbon Dioxide Level 28.4 MEQ/L Anion Gap 5 MEQ/L Blood Urea Nitrogen 28 MG/DL Creatinine 7.63 MG/DL Estimat Glomerular Filtration 8 ML/MIN Rate Random Glucose 85 MG/DL Calcium Level 7.0 MG/DL Protein Corrected Calcium 6.6 MG/DL Total Bilirubin 0.4 MG/DL Aspartate Amino Transf 50 U/L (AST/SGOT) Alanine Aminotransferase 17 U/L (ALT/SGPT) Alkaline Phosphatase 91 U/L Total Protein 8.2 GM/DL Albumin 3.5 GM/DL MDM Medical Decision Making Medical Screen Exam Complete: Yes Emergency Medical Condition: Yes Differential Diagnosis electrolyte abnormality versus ESRD versus skin rash versus scabies versus pruritis versus other Narrative Course 42 YO M with PMH of scoliosis, ESRD (on dialysis MWF,followed by Dr. Galicia) presents to the ED for evaluation of 2 day history of malaise, chills, pruritus. Has not measured a fever at home. Symptoms onset suddenly while getting dialysis two days ago. The patient states that there was "some kind of problem with the water" during his treatment and thinks this may be the cause for his symptoms. Denies CHATMAN, dizziness, CP, palpitations, SOB, N/V, anorexia, abdominal pain, back pain, weakness of the extremities. Treated with Benadryl with no improvement of symptoms. Vitals reviewed. Patient is afebrile on presentation. Physical exam reveals a nontoxic appearing white male in NAD. There are chronic skin changes noted on the extremities. There are scattered areas of excoriation but I do not see any rash or bites on the skin. There is no warmth erythema or edema noted. Patient was administered 5 mg IV Vistaril. No leukocytosis or anemia on the CBC. INR 1.0. Kidney function at baseline. Protein active calcium 6.6. Patient was administered 1g calcium chew. Discussed the results of the workup with the patient. Provided him with a short course of Vistaril. He is instructed take the medication as prescribed, avoid driving while taking the medication, return for worsening of symptoms, otherwise follow up with the primary care provider. He indicated understanding of the instructions and is agreeable to the care plan. The patient is stable and discharged home. Diagnosis Primary Impression: ESRD (end stage renal disease) on dialysis Additional Impressions: Generalized pruritus Hypocalcemia Referrals: Jaun Galicia MD Patient Instructions: General Instructions, Itchy Skin (ED) Additional Instructions: Rest, hydrate. Avoid hot showers, as this can worsen itching. Take Vistaril as prescribed. Do not drive while taking Vistaril. Follow up with Dr. Galicia. Return to the ED for worsening symptoms or any urgent or emergent medical condition. Med/Other Pt SpecificInfo: Prescription(s) given Scripts Hydroxyzine Pamoate (Vistaril)50 Mg Cap50 Mg PO TID PRN (ITCHING) #15 CAP Ref 0 Prov:Abhay Alford MD 01/27/17 Disposition: 01 DISCHARGE HOME Condition: Stable Sharla Steve Jan 27, 2017 14:29
[2017-01-27 14:39] LABS: BASOPHIL % 0.7 % (0.0-2.0); EOSINOPHIL # 1.1 TH/MM3 (0-0.4); EOSINOPHIL % 16.8 % (0.0-4.0); HEMATOCRIT 38.1 % (39.0-51.0); HEMO FLAGS DIFF FINAL; LYMPH % 14.2 % (9.0-44.0); LYMPHOCYTE # 0.9 TH/MM3 (1.0-4.8); MEAN CELL VOLUME 96.3 FL (80.0-100.0); MEAN CORPUSCULAR HEMOGLOBIN 32.6 PG (27.0-34.0); MEAN CORPUSCULAR HGB CONC 33.8 % (32.0-36.0); MONO % 6.2 % (0.0-8.0); NEUT % 62.1 % (16.0-70.0); PLATELET COUNT 143 TH/MM3 (150-450); RED BLOOD COUNT 3.95 MIL/MM3 (4.50-5.90); RED CELL DISTRIBUTION WIDTH 15.7 % (11.6-17.2); WHITE BLOOD COUNT 6.5 TH/MM3 (4.0-11.0)
[2017-01-27 14:44] LABS: APTT (PATIENT) 31.3 SEC (24.3-30.1); PROTHROMBIN TIME - PATIENT 11.2 SEC (9.8-11.6)
[2017-01-27 14:53] LABS: BICARBONATE 28.4 MEQ/L (21.0-32.0); POTASSIUM 6.1 MEQ/L (3.5-5.1); TOTAL BILIRUBIN ADULT 0.4 MG/DL (0.2-1.0)
[2017-01-27 14:56] LABS: CALCIUM-PROTEIN CORRECTED 6.6 MG/DL (8.5-10.1)
[2017-01-27] MEDS ORDERED: CALCIUM CARBONATE 1.25 GM (CA 500 MG) TAB PO ONE (15:15)
[2017-01-27] MEDS ORDERED: VIST50CA PO (16:09)
== END 2017-01-27 16:29 | disposition home or self-care (01) ==
LOC: NEPE 13:23
DX: N18.6 End stage renal disease (principal); L29.9 Pruritus, unspecified; E83.51 Hypocalcemia; I12.0 Hypertensive chronic kidney disease with stage 5 chronic kidney disease or end stage renal disease
CPT/HCPCS: 80053; 85025; 85610; 85730; 99283

== ENCOUNTER 2017-03-27 15:05 | Observation (INO) | payer MEDICARE ==
[~2017-03-27] VITALS: Ht 170.2 cm; Wt 66.0 kg
[~2017-03-27 15:05] MED LIST changes: +VIST50CA PO
[2017-03-27 15:08] VITALS: BP 163/72; PULSE 73; RESP 18; TEMP 98.7; O2SAT 99
--- NOTE | 2017-03-27 15:11 | PD ---
Physical Exam Date Seen by Provider: Mar 27, 2017 Time Seen by Provider: 15:10 Narrative 42 yo male that presents for evaluation of kidney pain. History of ESRD. Missed his dialysis on saturday. Has not had it since. No other medical issues. Vitals are stable in triage. Awaiting Bed placement. Data Data Last Documented VS Vital Signs Date Time Temp Pulse Resp B/P Pulse Ox O2 Delivery O2 Flow Rate FiO2 03/27/17 15:08 98.7 73 18 163/72 99 Room Air [facility] Medical Record Reviewed: Yes Supervised Visit with FANY: Chay Olivares Mar 27, 2017 15:11
[2017-03-27 16:30] VITALS: BP 164/74; PULSE 67; RESP 16; O2SAT 100
[2017-03-27] MEDS ORDERED: SODIUM CHLORIDE 0.9% FLUSH 10 ML FLUSH IVF PRN (16:45)
--- NOTE | 2017-03-27 16:45 | PD ---
HPI Chief Complaint: General Weakness Time Seen by Provider: 16:40 Travel History International Travel<30 days: No Contact w/Intl Traveler<30days: No Traveled to known affect area: No History of Present Illness HPI Patient comes emergency Department complaining of feeling terrible after missing his dialysis on Saturday night. Patient reports he currently dialysis at 11 PM and last had this Saturday night. Patient states he went out of town for work Saturday morning and did not get back until shortly prior to arrival. Patient states he did not plan on being out of town so did not have anything set up for dialysis out of state. Patient states he is scheduled to have dialysis tonight at 11 PM does not feels that he can make it until then states he feels too bad. Patient reports associated shortness of breath similar to previous symptoms when he has missed his dialysis. Patient denies any chest pain, fevers, nausea, vomiting, edema, or headache. Patient denies anything makes symptoms better or worse. PFSH Past Medical History Anxiety: Yes Cancer: No Cardiovascular Problems: Yes (HTN) Congestive Heart Failure: Yes Dialysis: Yes (M,W,F) Diminished Hearing: No Endocrine: No Genitourinary: Yes Hypertension: Yes Immune Disorder: No Implanted Vascular Access Dvce: Yes (left forearm fisula graft ) Musculoskeletal: No Neurologic: No Psychiatric: Yes Reproductive: No Respiratory: No Immunizations Current: Yes Renal Failure: Yes Shingles: Yes ?: Not Past Surgical History Abdominal Surgery: Yes (PERITONEAL DIALYSIS CATH INSERT/REMOVAL) Appendectomy: Yes Endocrine Surgery: Yes (right kidney transplant in 96 removed in 98 nonfunctional) Thoracic Surgery: Yes (PARATHYROID REMOVED) Other Surgery: Yes (several AV fisula's bilat arms-only current functional one is left FA) Social History Alcohol Use: No Tobacco Use: Yes (1 PPD) Substance Use: No Allergies-Medications (Allergen,Severity, Reaction): Coded Allergies: Cipro (Verified Allergy, Severe, THROAT SWELLS, 03/27/17) Reported Meds & Prescriptions Reported Meds & Active Scripts Active Vistaril (Hydroxyzine Pamoate) 50 Mg Cap 50 Mg PO TID PRN Reported Lortab (Hydrocodone-Acetaminophen) 10-325 Mg Tab 1 Tab PO TID PRN Clonidine (Clonidine HCl) 0.2 Mg Tab 0.2 Mg PO DAILY PRN Tums (Calcium Carbonate (Antacid)) 500 Mg Chew 500 Mg CHEW BID Alprazolam 0.5 Mg Tab 0.5 Mg PO BID Review of Systems Except as stated in HPI: all other systems reviewed are Neg Physical Exam Narrative GENERAL: Well-developed, well nourished, in no acute distress, and non-ill appearing. SKIN: Focused skin assessment warm and dry. HEAD: Atraumatic. Normocephalic. EYES: Pupils equal and round. EOMI. No scleral icterus. No injection or drainage. ENT: No nasal bleeding or discharge. Mucous membranes pink and moist. NECK: Trachea midline. Supple. No nuclear rigidity. CARDIOVASCULAR: Regular rate and rhythm. Murmur appreciated. Palpable bruit noted left upper extremity fistula. RESPIRATORY: No accessory muscle use. No respiratory distress. Clear to auscultation, but slightly decreased. Breath sounds equal bilaterally. GASTROINTESTINAL: Abdomen soft, non-tender, nondistended, and no guarding. Hepatic and splenic margins not palpable. Normal bowel sounds 4. No pulsatile mass. MUSCULOSKELETAL: No obvious deformities. No clubbing. No cyanosis. No edema. Full range of motion. NEUROLOGICAL: Awake and alert. No obvious cranial nerve deficits. Motor grossly within normal limits. Normal speech. PSYCHIATRIC: Appropriate mood and affect; insight and judgment normal. Data Data Last Documented VS Vital Signs Date Time Temp Pulse Resp B/P Pulse Ox O2 Delivery O2 Flow Rate FiO2 03/27/17 16:30 67 16 164/74 100 Room Air 03/27/17 15:08 98.7 Orders Basic Metabolic Panel (Bmp) (03/27/17 16:36) Complete Blood Count With Diff (03/27/17 16:36) Magnesium (Mg) (03/27/17 16:36) Ecg Monitoring (03/27/17 16:36) Iv Access Insert/Monitor (03/27/17 16:36) Oxygen Administration (03/27/17 16:36) Sodium Chloride 0.9% Flush (Ns Flush) (03/27/17 16:45) Electrocardiogram (03/27/17 ) Calcium Gluconate Inj (Calcium Gluconate (03/27/17 17:30) Insulin Human Regular Inj (Novolin R Inj (03/27/17 17:45) Dextrose 50% In Leobardo (Vial) Inj (D50w (Vi (03/27/17 17:30) Sodium Bicarbonate 8.4% Inj (Sodium Bica (03/27/17 17:30) Sodium Polysty Sulfate Liq (Kayexalate L (03/27/17 17:30) Protein Corrected Calcium(Pcc) (03/27/17 17:20) Blood Flow Rate (03/27/17 18:13) Dialysate Flow Rate (03/27/17 18:13) Dialyzer (03/27/17 18:13) Concentrate (03/27/17 18:13) Acid Concentrate (03/27/17 18:13) Length Of Dialysis (03/27/17 18:13) Frequency Of Dialysis (03/27/17 18:13) Dialysis Obtain (03/27/17:) Needle Size (03/27/17:) Dialysis Schedule (03/27/17 18:13) Resp Oxygen Macho C Titrat 1-4 L (03/27/17 ) Dialysis Weight (03/27/17 18:13) ^ Obtain As Needed (03/27/17 18:13) Sodium Chlor 0.9% 1000 Ml Inj (Ns 1000 M (03/27/17 18:13) Heparin Inj (Heparin Inj) (03/27/17 18:15) Sodium Chlor 0.9% 1000 Ml Inj (Ns 1000 M (03/27/17 18:13) Sodium Chlor 0.9% 1000 Ml Inj (Ns 1000 M (03/27/17 18:13) Mannitol Inj (Mannitol Inj) (03/27/17 18:15) Albumin 25% Inj (Albumin 25% Inj) (03/27/17 18:15) Sodium Chloride 0.9% Flush (Ns Flush) (03/27/17 18:15) Heparin Inj (Heparin Inj) (03/27/17 18:15) Gentamicin (Dialysis) Inj (Gentamicin (D (03/27/17 18:15) Ondansetron Inj (Zofran Inj) (03/27/17 18:15) Acetaminophen (Tylenol) (03/27/17 18:15) Diphenhydramine (Benadryl) (03/27/17 18:15) Nitroglycerin Sl (Nitrostat Sl) (03/27/17 18:15) Clonidine (Catapres) (03/27/17 18:15) Epoetin Rafi Inj (Epogen Inj) (03/27/17 18:15) Gelatin 12 Mm/7 Mm Top (Gelfoam 12 Mm/7 (03/27/17 18:15) Consult Nephrology (03/27/17 ) Admit Order (Ed Use Only) (03/27/17 18:36) Labs Laboratory Tests Test 03/27/17 17:20 White Blood Count 5.7 TH/MM3 Red Blood Count 3.29 MIL/MM3 Hemoglobin 11.0 GM/DL Hematocrit 32.0 % Mean Corpuscular Volume 97.2 FL Mean Corpuscular Hemoglobin 33.3 PG Mean Corpuscular Hemoglobin 34.3 % Concent Red Cell Distribution Width 15.0 % Platelet Count 105 TH/MM3 Mean Platelet Volume 7.9 FL Neutrophils (%) (Auto) 73.5 % Lymphocytes (%) (Auto) 15.1 % Monocytes (%) (Auto) 6.3 % Eosinophils (%) (Auto) 4.6 % Basophils (%) (Auto) 0.5 % Neutrophils # (Auto) 4.2 TH/MM3 Lymphocytes # (Auto) 0.9 TH/MM3 Monocytes # (Auto) 0.4 TH/MM3 Eosinophils # (Auto) 0.3 TH/MM3 Basophils # (Auto) 0.0 TH/MM3 CBC Comment DIFF FINAL Differential Comment Sodium Level 133 MEQ/L Potassium Level 6.6 MEQ/L Chloride Level 97 MEQ/L Carbon Dioxide Level 18.4 MEQ/L Anion Gap 18 MEQ/L Blood Urea Nitrogen 92 MG/DL Creatinine 14.03 MG/DL Estimat Glomerular Filtration 4 ML/MIN Rate Random Glucose 92 MG/DL Calcium Level 6.2 MG/DL Protein Corrected Calcium 5.9 MG/DL Magnesium Level 2.7 MG/DL Total Protein 8.0 GM/DL [facility] Medical Decision Making Medical Screen Exam Complete: Yes Emergency Medical Condition: Yes Interpretation(s) EKG reviewed by Dr. Erazo shows sinus rhythm with ventricular 70. Hyperkalemic EKG changes noted. Differential Diagnosis Hyperkalemia, consider renal disease in need of dialysis, electrolyte abnormality, other Narrative Course Patient was seen and examined. IV was established. Patient is on continuous well shooter. Initial laboratory and EKG was ordered. 1733 call placed to nephrology after seeing patient's EKG. appropriate medications were ordered by Dr. Erazo. Labs reviewed. Discussed patient with nephrology so patient for emergent dialysis. Physician hospitalist who is agreeable to admit the patient. Patient was taken to dialysis from the emergency department without incident. Patient remained stable in the ED. Physician Communication Physician Communication [address] Jiménez, digital marketing program manager covering for Dr. Don, states he'll take care of the patient. [address] Jiménez, again the labs are back to make them aware. Dr. Rosado where once patient admitted to hospitalist this patient will need to be kept overnight for observation. 1834 discussed patient with , who is agreeable to admit the patient. Diagnosis Primary Impression: Hyperkalemia Additional Impression: ESRD (end stage renal disease) on dialysis Admitting Information Admitting Physician Requests: Observation Condition: Serious Nale Quesada Mar 27, 2017 16:45
[2017-03-27] MEDS ORDERED: SODIUM POLYSTYRENE SULFONATE SUSP 15 GM/60 ML CUP PO ONE (17:30)
[2017-03-27] MEDS ORDERED: CALCIUM GLUCONATE 10% 1 GM/10 ML VIAL SLOW IVP ONE (17:30)
[2017-03-27] MEDS ORDERED: DEXTROSE 50% IN WATER 50 ML VIAL(D50) IV PUSH ONE (17:30)
[2017-03-27] MEDS ORDERED: SODIUM BICARBONATE 8.4% SOLN 50 MEQ/50 ML VIAL SLOW IVP ONE (17:30)
[2017-03-27 17:39] LABS: AUTOMATED NEUTROPHIL # 4.2 TH/MM3 (1.8-7.7); BASOPHIL % 0.5 % (0.0-2.0); EOSINOPHIL # 0.3 TH/MM3 (0-0.4); EOSINOPHIL % 4.6 % (0.0-4.0); HEMO FLAGS DIFF FINAL; LYMPH % 15.1 % (9.0-44.0); LYMPHOCYTE # 0.9 TH/MM3 (1.0-4.8); MEAN CELL VOLUME 97.2 FL (80.0-100.0); MEAN CORPUSCULAR HEMOGLOBIN 33.3 PG (27.0-34.0); MEAN CORPUSCULAR HGB CONC 34.3 % (32.0-36.0); MONO % 6.3 % (0.0-8.0); NEUT % 73.5 % (16.0-70.0); PLATELET COUNT 105 TH/MM3 (150-450); RED BLOOD COUNT 3.29 MIL/MM3 (4.50-5.90); WHITE BLOOD COUNT 5.7 TH/MM3 (4.0-11.0)
[2017-03-27] MEDS ORDERED: INSULIN HUMAN REGULAR 1,000 UNITS/10 ML VIAL IV PUSH ONE (17:45)
[2017-03-27 18:06] LABS: BICARBONATE 18.4 MEQ/L (21.0-32.0); MAGNESIUM 2.7 MG/DL (1.5-2.5)
[2017-03-27 18:10] LABS: POTASSIUM 6.6 MEQ/L (3.5-5.1)
[2017-03-27] MEDS ORDERED: SODIUM CHLOR 0.9% 1000 ML INJ 1,000 ML IV PRN ×3 (18:13)
[2017-03-27] MEDS ORDERED: HEPARIN SODIUM - IV 10,000 UNITS/10 ML VIAL PRN (18:15)
[2017-03-27] MEDS ORDERED: HEPARIN SODIUM - IV 10,000 UNITS/10 ML VIAL IVF PRN (18:15)
[2017-03-27] MEDS ORDERED: MANNITOL 12.5 GM/50 ML VIAL IV PRN (18:15)
[2017-03-27] MEDS ORDERED: cloNIDine HCL 0.1 MG TAB PO PRN (18:15)
[2017-03-27] MEDS ORDERED: ALBUMIN HUMAN 25% 25 GM/100 ML BAGP IV PRN (18:15)
[2017-03-27] MEDS ORDERED: diphenhydrAMINE HCL 25 MG CAP PO PRN (18:15)
[2017-03-27] MEDS ORDERED: GENTAMICIN SULFATE (DIALYSIS USE ONLY) 20 MG/2 ML VIAL IV PRN (18:15)
[2017-03-27] MEDS ORDERED: ACETAMINOPHEN 325 MG TAB PO PRN ×2 (18:15→18:45)
[2017-03-27] MEDS ORDERED: ONDANSETRON HCL 4 MG/2 ML VIAL IV PRN (18:15)
[2017-03-27] MEDS ORDERED: NITROGLYCERIN 0.4 MG SL 25 TABS/BTL SL PRN (18:15)
[2017-03-27] MEDS ORDERED: GELATIN 12 MM/7 MM FOAM TOP PRN (18:15)
[2017-03-27] MEDS ORDERED: EPOETIN ALFA 10,000 UNITS/ML VIAL IV PRN (18:15)
[2017-03-27] MEDS ORDERED: SODIUM CHLORIDE 0.9% FLUSH 10 ML FLUSH IV FLUSH PRN (18:15)
[2017-03-27 18:23] LABS: CALCIUM-PROTEIN CORRECTED 5.9 MG/DL (8.5-10.1)
--- NOTE | 2017-03-27 18:28 | PD ---
Data Data Last Documented VS Vital Signs Date Time Temp Pulse Resp B/P Pulse Ox O2 Delivery O2 Flow Rate FiO2 03/27/17 16:30 67 16 164/74 100 Room Air 03/27/17 15:08 98.7 Orders Basic Metabolic Panel (Bmp) (03/27/17 16:36) Complete Blood Count With Diff (03/27/17 16:36) Magnesium (Mg) (03/27/17 16:36) Ecg Monitoring (03/27/17 16:36) Iv Access Insert/Monitor (03/27/17 16:36) Oxygen Administration (03/27/17 16:36) Sodium Chloride 0.9% Flush (Ns Flush) (03/27/17 16:45) Electrocardiogram (03/27/17 ) Calcium Gluconate Inj (Calcium Gluconate (03/27/17 17:30) Insulin Human Regular Inj (Novolin R Inj (03/27/17 17:45) Dextrose 50% In Leobardo (Vial) Inj (D50w (Vi (03/27/17 17:30) Sodium Bicarbonate 8.4% Inj (Sodium Bica (03/27/17 17:30) Sodium Polysty Sulfate Liq (Kayexalate L (03/27/17 17:30) Protein Corrected Calcium(Pcc) (03/27/17 17:20) Blood Flow Rate (03/27/17 18:13) Dialysate Flow Rate (03/27/17 18:13) Dialyzer (03/27/17 18:13) Concentrate (03/27/17 18:13) Acid Concentrate (03/27/17 18:13) Length Of Dialysis (03/27/17 18:13) Frequency Of Dialysis (03/27/17 18:13) Dialysis Obtain (03/27/17 18:13) Needle Size (03/27/17 18:13) Dialysis Schedule (03/27/17 18:13) Resp Oxygen Macho C Titrat 1-4 L (03/27/17 ) Dialysis Weight (03/27/17 18:13) ^ Obtain As Needed (03/27/17 18:13) Sodium Chlor 0.9% 1000 Ml Inj (Ns 1000 M (03/27/17 18:13) Heparin Inj (Heparin Inj) (03/27/17 18:15) Sodium Chlor 0.9% 1000 Ml Inj (Ns 1000 M (03/27/17 18:13) Sodium Chlor 0.9% 1000 Ml Inj (Ns 1000 M (03/27/17 18:13) Mannitol Inj (Mannitol Inj) (03/27/17 18:15) Albumin 25% Inj (Albumin 25% Inj) (03/27/17 18:15) Sodium Chloride 0.9% Flush (Ns Flush) (03/27/17 18:15) Heparin Inj (Heparin Inj) (03/27/17 18:15) Gentamicin (Dialysis) Inj (Gentamicin (D (03/27/17 18:15) Ondansetron Inj (Zofran Inj) (03/27/17 18:15) Acetaminophen (Tylenol) (03/27/17 18:15) Diphenhydramine (Benadryl) (03/27/17 18:15) Nitroglycerin Sl (Nitrostat Sl) (03/27/17 18:15) Clonidine (Catapres) (03/27/17 18:15) Epoetin Rafi Inj (Epogen Inj) (03/27/17 18:15) Gelatin 12 Mm/7 Mm Top (Gelfoam 12 Mm/7 (03/27/17 18:15) Consult Nephrology (03/27/17 ) Labs Laboratory Tests Test 03/27/17 17:20 White Blood Count 5.7 TH/MM3 Red Blood Count 3.29 MIL/MM3 Hemoglobin 11.0 GM/DL Hematocrit 32.0 % Mean Corpuscular Volume 97.2 FL Mean Corpuscular Hemoglobin 33.3 PG Mean Corpuscular Hemoglobin 34.3 % Concent Red Cell Distribution Width 15.0 % Platelet Count 105 TH/MM3 Mean Platelet Volume 7.9 FL Neutrophils (%) (Auto) 73.5 % Lymphocytes (%) (Auto) 15.1 % Monocytes (%) (Auto) 6.3 % Eosinophils (%) (Auto) 4.6 % Basophils (%) (Auto) 0.5 % Neutrophils # (Auto) 4.2 TH/MM3 Lymphocytes # (Auto) 0.9 TH/MM3 Monocytes # (Auto) 0.4 TH/MM3 Eosinophils # (Auto) 0.3 TH/MM3 Basophils # (Auto) 0.0 TH/MM3 CBC Comment DIFF FINAL Differential Comment Sodium Level 133 MEQ/L Potassium Level 6.6 MEQ/L Chloride Level 97 MEQ/L Carbon Dioxide Level 18.4 MEQ/L Anion Gap 18 MEQ/L Blood Urea Nitrogen 92 MG/DL Creatinine 14.03 MG/DL Estimat Glomerular Filtration 4 ML/MIN Rate Random Glucose 92 MG/DL Calcium Level 6.2 MG/DL Protein Corrected Calcium 5.9 MG/DL Magnesium Level 2.7 MG/DL Total Protein 8.0 GM/DL MDM Medical Record Reviewed: Yes Supervised Visit with FANY: Yes Narrative Course I, Dr. Erazo, have reviewed the advance practice practitioner's documentation and am in agreement, met with the patient face to face, made the diagnosis, and the medical decision making was done by me. *My assessment and Findings: Patient was found to have hyperkalemic EKG changes such that calcium, insulin and dextrose, bicarbonate and Kayexalate were ordered stat. Stat dialysis arranged as well with Dr Jiménez. Please refer to the the documentation of Gulshan Ye MD Mar 27, 2017 18:28
[2017-03-27] MEDS ORDERED: ONDANSETRON HCL 4 MG/2 ML VIAL IV PUSH PRN (18:45)
--- NOTE | 2017-03-27 19:14 | MB ---
cc: KURTIS CHANG MD DATE OF CONSULTATION 03/27/2017 REASON FOR CONSULTATION End-stage renal disease on hemodialysis, missed his treatment. HISTORY OF PRESENT ILLNESS This is a 42-year-old male with past medical history of hypertension, chronic anemia, hyperparathyroidism, history of seizure disorder, end-stage renal disease on hemodialysis came to the emergency department because he missed dialysis on Saturday. I was called to see the patient for management of dialysis. The patient has been on hemodialysis Saturday, Saturday and Saturday. He has been following with Dr. Galicia and he had his last hemodialysis treatment on Saturday. He missed Saturday and has been feeling weak and tired and having trouble breathing. He goes at night for dialysis, he is on nocturnal dialysis and supposed to go at night. He was feeling sick and he thought he could not wait and he came here. On arrival the EKG showed that he has some peak T waves. BNP is not back yet but the thought was that he possibly has hyperkalemia. He was given the treatment for hyperkalemia including sodium bicarbonate, Kayexalate, calcium gluconate. The patient is on room air. He has mild shortness of breath. Also has some retrosternal chest discomfort. He had a history of hyperkalemia in the past. There is no vomiting. He has mild nausea. No abdominal pain. PAST MEDICAL HISTORY 1. Hypertension. 2. Seizure disorder. 3. Chronic anemia. 4. Hyperparathyroidism. 5. End-stage renal disease on hemodialysis three times per week. PAST SURGICAL HISTORY 1. History of AV fistula placement. 2. Parathyroidectomy. REVIEW OF SYSTEMS The patient has generalized weakness, feeling tired, has shortness of breath and nausea. There is no vomiting. He has mild heaviness in the retrosternal area in the chest. Has leg cramps. No vomiting. No fever. No abdominal pain. No history of diarrhea. The patient missed the dialysis treatment because according to him he went to [place] for job work. SOCIAL HISTORY He has history of chronic smoking, he smoked one pack per day. FAMILY HISTORY Noncontributory. ALLERGIES HE IS ALLERGIC TO CIPRO. PHYSICAL EXAMINATION GENERAL: The patient is awake and alert. He is not in acute distress. VITAL SIGNS: His last blood pressure is 164/74, temperature is 98.7. Oxygen saturation on room air is 99-100%. HEENT: Pupils equally reactive to light. Nonicteric sclerae. Conjunctivae normal. NECK: Supple. JVD is not elevated. LUNGS: The patient has bilateral good air entry with occasional wheezing. HEART: S1-S2. Regular rhythm. ABDOMEN: Soft. Lax. There is no tenderness. Bowel sounds positive. EXTREMITIES: There is mild edema in the legs. LABORATORY DATA Investigations, WBC count is 5.7, hemoglobin 11.0, platelet count 105, neutrophils 73.5%. BMP just came back showing sodium 133, potassium 6.6, chloride 97, bicarb 18.4, BUN 92, creatinine 14.3, calcium 6.2, magnesium 2.7. IMAGING STUDIES There are no recent imaging studies. ASSESSMENT/PLAN 1. End-stage renal disease on hemodialysis. 2. Hyperkalemia. 3. Hypocalcemia. 4. Uremia. 5. Hypertension. 6. Anemia. The patient has previous history of noncompliance and he comes with hyperkalemia and calcium is low. Has been missing dialysis off and on. We will dialyze him urgently. I already called the dialysis nurse. We will give him a short treatment tonight two hours with low potassium bath and try to get about 2-3 liters of fluid. The patient will go back to his regular schedule for Saturday, Saturday and Saturday. Thank you for the consultation. Dr. Galicia is on vacation so I will follow the patient while he is in the hospital. MD ZINA Dodd/NADINE /6:08 PM /6:46 PM
--- NOTE | 2017-03-27 20:32 | HHI.HP ---
[facility] Sahil Galicia MD Admission Diagnosis hyperkalemia, ESRD needing emergent dialysis Diagnoses: (1) ESRD (end stage renal disease) on dialysis (2) Hyperkalemia (3) Hypocalcemia Chief Complaint: numbness around lips and feet Travel History International Travel<30 Days: No Contact w/Intl Traveler <30 Da: No Traveled to Known Affected Are: No History of Present Illness Written by Yeimi Snow, acting as scribe for Dr. Hummel on 03/27/17 at 20:31. The patient is seen while undergoing hemodialysis. The patient states that he had his last dialysis on Saturday. He missed Saturday's dialysis because he was working out of town and had numbness and tingling of lips and feet today and he decided to come to the ED for evaluation. He denies having shortness of breath. He states he has had ESRD for 26 years. Denies fever, shortness of breath. chest pain, nausea, vomiting, or diarrhea. 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 Denies polycystic kidney disease. Patient's workup in emergency room showed severe life-threatening hyperkalemia, with EKG changes. He was also found to have severe life-threatening hypocalcemia. He was given cocktail for treatment of hyperkalemia in ER. He was then sent for emergent dialysis. At the dialysis, patient was noted to be profusely diaphoretic and somewhat not looking well. There for the dialysis nurse had checked his blood sugar stat which showed in the 50s. Therefore the nurse had given him crackers, cheese, peanut butter and his blood sugars were repeated which were normal. Review of Systems Except as stated in HPI: all other systems reviewed are Neg Past Family Social History Past Medical History Hypocalcemia ESRD x 26 years Hypertension Status post parathyroidectomy History of kidney transplant which failed Denies diabetes mellitus, COPD, CAD, hepatitis/liver problems, DVT, PE, CVA, thyroid problems, or seizures . Past Surgical History Appendectomy Several AV fistulas - currently has a left upper arm fistula Parathyroidectomy Kidney transplant 1995 which failed and was removed in 1997 Peritoneal dialysis cath insertion and removal . Reported Medications Reported Meds & Active Scripts Active Vistaril (Hydroxyzine Pamoate) 50 Mg Cap 50 Mg PO TID PRN Reported Lortab (Hydrocodone-Acetaminophen) 10-325 Mg Tab 1 Tab PO TID PRN Clonidine (Clonidine HCl) 0.2 Mg Tab 0.2 Mg PO DAILY PRN Tums (Calcium Carbonate (Antacid)) 500 Mg Chew 500 Mg CHEW BID Alprazolam 0.5 Mg Tab 0.5 Mg PO BID . Allergies: Coded Allergies: Cipro (Verified Allergy, Severe, THROAT SWELLS, 03/27/17) Active Ordered Medications Current Medications Sodium Chloride (NS Flush) 2 ml UNSCH PRN IVF FLUSH AFTER USING IV ACCESS; Start 03/27/17 at 16:45 Calcium Gluconate (Calcium Gluconate Inj) 2 gm ONCE ONCE SLOW IVP Last administered on 03/27/17 18:27; Start 03/27/17 at 17:30; Stop 03/27/17 at 17:32; Status DC Insulin Human Regular (NovoLIN R INJ) 10 units ONCE ONCE IV PUSH Last administered on 03/27/17 18:37; Start 03/27/17 at 17:45; Stop 03/27/17 at 17:46; Status DC Dextrose (D50w (Vial) Inj) 50 ml ONCE ONCE IV PUSH Last administered on 18:27; Start 03/27/17 at 17:30; Stop 03/27/17 at 17:32; Status DC Sodium Bicarbonate (Sodium Bicarbonate 8.4% Inj) 150 meq ONCE ONCE SLOW IVP ; Start 03/27/17 at 17:30; Stop 03/27/17 at 17:32; Status DC Sodium Polystyrene Sulfonate 15 gm 15 gm ONCE ONCE PO ; Start 03/27/17 at 17:30 ; Stop 03/27/17 at 17:32; Status DC Sodium Chloride (NS 1000 ml Inj) 1,000 ml @ 0 mls/hr Q0M PRN IV For Prime & Rinse Back; Start 03/27/17 at 18:13 Heparin Sodium (Porcine) 8000 units 8,000 units UNSCH PRN IVF WITH DIALYSIS; Start 03/27/17 at 18:15 Sodium Chloride 1,000 ml @ 200 mls/hr Q5H PRN IV WITH DIALYSIS; Start 03/27/17 at 18:13 Sodium Chloride (NS 1000 ml Inj) 1,000 ml @ 0 mls/hr Q0M PRN IV WITH DIALYSIS; Start 03/27/17 at 18:13 Mannitol (Mannitol Inj) 12.5 gm UNSCH PRN IV WITH DIALYSIS; Start 03/27/17 at 18 :15 Albumin Human (Albumin 25% Inj) 25 gm UNSCH PRN IV WITH DIALYSIS; Start at 18:15 Sodium Chloride (NS Flush) 5 ml UNSCH PRN IV FLUSH WITH DIALYSIS; Start at 18:15 Heparin Sodium (Porcine) (Heparin Inj) UNSCH PRN .XX WITH DIALYSIS; Start 03/27 at 18:15 Gentamicin Sulfate (Gentamicin (Dialysis) Inj) 20 mg UNSCH PRN IV WITH DIALYSIS ; Start 03/27/17 at 18:15 Ondansetron HCl (Zofran Inj) 4 mg UNSCH PRN IV WITH DIALYSIS; Start 03/27/17 at 18:15 Acetaminophen (Tylenol) 650 mg UNSCH PRN PO for headach, pain, temp > 101F; Start 03/27/17 at 18:15 Diphenhydramine HCl (Benadryl) 25 mg UNSCH PRN PO for hives/itching/anaphylaxis ; Start 03/27/17 at 18:15 Nitroglycerin (Nitrostat Sl) 0.4 mg UNSCH PRN SL CHEST PAIN; Start 03/27/17 at 18:15 Clonidine (Catapres) 0.1 mg UNSCH PRN PO for BP > 180/100 X 2 readings; Start 03/27/17 at 18:15 Epoetin Rafi (Epogen Inj) 4,000 units UNSCH PRN IV WITH DIALYSIS; Start at 18:15 Gelatin (Gelfoam 12 Mm/7 Mm Top) 1 foam UNSCH PRN TOP SEE LABEL COMMENTS; Start 03/27/17 at 18:15 Ondansetron HCl (Zofran Inj) 4 mg Q8HR PRN IV PUSH NAUSEA; Start 03/27/17 at 18: 45 Acetaminophen (Tylenol) 650 mg Q4H PRN PO FEVER; Start 03/27/17 at 18:45 . Family History Father with gastric cancer, age 55 y/o from intraoperative [place] . Social History Tobacco: smoked 1 PPD Alcohol: denies Illicit Drugs: denies . Physical Exam Vital Signs Vital Signs Date Time Temp Pulse Resp B/P Pulse Ox O2 Delivery O2 Flow Rate FiO2 03/27/17 16:30 67 16 164/74 100 Room Air 03/27/17 15:08 98.7 73 18 163/72 99 Room Air Physical Exam GENERAL: This is a well-nourished, well-developed patient, in no apparent distress. SKIN: No rashes, ecchymoses or lesions. Cool and mildly diaphoretic (blood glucose was 50 but corrected to 140 by it program manager). HEAD: Atraumatic. Normocephalic. EYES: No scleral icterus. No injection or drainage. ENT: Nose without bleeding, purulent drainage. NECK: Trachea midline. No JVD CARDIOVASCULAR: Regular rate and rhythm without murmurs, gallops, or rubs. RESPIRATORY: Clear to auscultation. Breath sounds equal bilaterally. No wheezes , rales, or rhonchi. GASTROINTESTINAL: Abdomen soft, non-tender, nondistended. No guarding. MUSCULOSKELETAL: Extremities without clubbing, cyanosis, or edema. No calf tenderness. NEUROLOGICAL: Awake and alert. Motor and sensory grossly within normal limits. Normal speech. . Laboratory Laboratory Tests Test 03/27/17 17:20 White Blood Count 5.7 Red Blood Count 3.29 Hemoglobin 11.0 Hematocrit 32.0 Mean Corpuscular Volume 97.2 Mean Corpuscular Hemoglobin 33.3 Mean Corpuscular Hemoglobin 34.3 Concent Red Cell Distribution Width 15.0 Platelet Count 105 Mean Platelet Volume 7.9 Neutrophils (%) (Auto) 73.5 Lymphocytes (%) (Auto) 15.1 Monocytes (%) (Auto) 6.3 Eosinophils (%) (Auto) 4.6 Basophils (%) (Auto) 0.5 Neutrophils # (Auto) 4.2 Lymphocytes # (Auto) 0.9 Monocytes # (Auto) 0.4 Eosinophils # (Auto) 0.3 Basophils # (Auto) 0.0 CBC Comment DIFF FINAL Differential Comment Sodium Level 133 Potassium Level 6.6 Chloride Level 97 Carbon Dioxide Level 18.4 Anion Gap 18 Blood Urea Nitrogen 92 Creatinine 14.03 Estimat Glomerular Filtration 4 Rate Random Glucose 92 Calcium Level 6.2 Protein Corrected Calcium 5.9 Magnesium Level 2.7 Total Protein 8.0 Result Diagram: 03/27/17 1720 03/27/17 1720 Assessment and Plan Problem List: (1) ESRD (end stage renal disease) on dialysis ICD Code: N18.6 Status: Chronic (2) Hyperkalemia ICD Code: E87.5 Status: Acute (3) Hypocalcemia ICD Code: E83.51 Status: Acute Assessment and Plan The patient has ESRD and is admitted to observation after missing dialysis on Saturday and presented with numbness and tingling around lips and feet. ESRD on HD with history of noncompliance - Missed dialysis. With evidence of severe hyperkalemia with EKG changes - BUN- 92, Creatinine 14.03, eGFR 4 - Dr. Jiménez consulted, patient was dialyzed emergently. Severe life-threatening Hyperkalemia - Potassium 6.6 on admission txed with urgent dialysis . Was given cocktail with insulin/dextrose/calcium gluconate/Kayexalate in ER. - Recheck BMP one hour post dialysis. Severe life-threatening symptomatic Hypocalcemia with perioral paresthesias- s/ p parathyroidectomy . Since that patient is noncompliant with his Tums. - Protein corrected calcium 5.9 - replaced calcium - recheck calcium post dialysis. Would replace as needed. If labs are improved one hour following dialysis, patient will be discharged home at his request. If there is no improvement in labs, patient would still need to be treated in hospital with replacements. If he wants to go home despite no improvements in electrolytes, he would need to sign out AGAINST MEDICAL ADVICE. This note was transcribed by scribjessie [Yeimi Snow]. I, Dr. Chucho Hummel personally performed the history, physical exam, and medical decision making; and confirmed the accuracy of the information in the transcribed note. Authenticated by Dr. Chucho Hummel on 03/27/17 at 20:31. Discussed Condition With ER physician, it program manager, and patient . Yeimi Snow Mar 27, 2017 20:31 Chucho Hummel MD Mar 28, 2017 02:10
[2017-03-27 21:32] VITALS: BP 121/58; PULSE 72; RESP 15; O2SAT 100
[2017-03-27 22:29] VITALS: O2SAT 99
[2017-03-27] MEDS: CALCIUM CARBONATE 500 MG CHEWABLE TAB CHEW ONE ×2 (23:05→23:45)
[2017-03-27 23:23] LABS: BICARBONATE 30.9 MEQ/L (21.0-32.0); POTASSIUM 4.1 MEQ/L (3.5-5.1)
[2017-03-27] MEDS ORDERED: CALCIUM GLUCONATE INJ 2 GM in SODIUM CHLORIDE 0.9% INJ 100 ML IV ONE (23:45)
[2017-03-27] MEDS ORDERED: CALCIUM GLUCONATE 10% 1 GM/10 ML VIAL IV PUSH ONE (23:45)
[2017-03-27 23:46] LABS: CALCIUM-PROTEIN CORRECTED 6.4 MG/DL (8.5-10.1)
--- NOTE | 2017-03-28 11:36 | EKG ---
Date Performed: 03/27/2017 Time Performed: 17:27:52 PTAGE: 42 years EKG: Sinus rhythm PROLONGED QT INTERVAL ABNORMAL ECG Compared to prior tracing no significant change PREVIOUS TRACING : 12/30/2016 13.34 DOCTOR: Hong Ace Interpretating Date/Time 03/28/2017 11:34:55
== END 2017-03-27 23:55 | disposition left against medical advice (07) ==
LOC: NEPC 15:05 → NEDA 18:38 → NEDH 23:07
PROVIDERS: ADMIT Internal Medicine; ATTEND Internal Medicine
DX: I13.2 Hypertensive heart and chronic kidney disease with heart failure and with stage 5 chronic kidney disease, or end stage renal disease (principal); N18.6 End stage renal disease; I50.9 Heart failure, unspecified; E87.5 Hyperkalemia; E83.51 Hypocalcemia; G40.909 Epilepsy, unspecified, not intractable, without status epilepticus; D64.9 Anemia, unspecified; E21.3 Hyperparathyroidism, unspecified; R94.31 Abnormal electrocardiogram [ECG] [EKG]; F17.200 Nicotine dependence, unspecified, uncomplicated; Z94.0 Kidney transplant status; Z91.19 Patient's noncompliance with other medical treatment and regimen; Z99.2 Dependence on renal dialysis; Z79.899 Other long term (current) drug therapy
CPT/HCPCS: 80048; 83735; 84155; 85025; 93005; 96372; 96374; 99285; G0257; G0378; J0610; J1815; Q4081; 90935

== ENCOUNTER 2017-09-23 08:58 | Emergency (ER) | payer OTHER, MEDICARE ==
[~2017-09-23] VITALS: Ht 172.7 cm; Wt 76.0 kg
[~2017-09-23 08:58] MED LIST changes: -AMLO10TA2 PO
[2017-09-23 09:05] VITALS: BP 117/68; PULSE 92; RESP 16; TEMP 98.2; O2SAT 96
[2017-09-23] MEDS ORDERED: HYDR-3583 PO (09:11)
--- NOTE | 2017-09-23 09:49 | PD ---
HPI Chief Complaint: Seizure Time Seen by Provider: 09:29 Travel History International Travel<30 days: No Contact w/Intl Traveler<30days: No Traveled to known affect area: No History of Present Illness HPI Patient gives a history stating that he is a dialysis patient of Dr. Galicia he attends Saturday dialysis and he is due today at about 530. Patient states that he has history of having some seizure activity whenever his calcium level is low he believes that that is what is going on today as well. This was apparently not witnessed by the family.....but states he is quite confident that his calcium is low PFSH Past Medical History Anxiety: Yes Cancer: No Cardiovascular Problems: Yes (HTN) Congestive Heart Failure: Yes Dialysis: Yes (M,W,F) Diminished Hearing: No Endocrine: No Genitourinary: Yes Hypertension: Yes Immune Disorder: No Implanted Vascular Access Dvce: Yes (left forearm fisula graft ) Musculoskeletal: No Neurologic: No Psychiatric: Yes Reproductive: No Respiratory: No Immunizations Current: Yes Renal Failure: Yes Shingles: Yes Past Surgical History Abdominal Surgery: Yes (PERITONEAL DIALYSIS CATH INSERT/REMOVAL) Appendectomy: Yes Endocrine Surgery: Yes (right kidney transplant in 96 removed in 98 nonfunctional) Thoracic Surgery: Yes (PARATHYROID REMOVED) Other Surgery: Yes (several AV fisula's bilat arms-only current functional one is left FA) Social History Alcohol Use: No Tobacco Use: Yes (1 PPD) Substance Use: No Allergies-Medications (Allergen,Severity, Reaction): Coded Allergies: ciprofloxacin (Unverified Allergy, Severe, THROAT SWELLS, 09/23/17) Reported Meds & Prescriptions Reported Meds & Active Scripts Active Calcium 600 with Vitamin D (Calcium Carbonate-Cholecalciferol) 600-400 mg-Unit Tab 1 Tab PO DAILY 30 Days Ergocalciferol 50,000 Unit Cap 50,000 Units PO Q7D Vistaril (Hydroxyzine Pamoate) 50 Mg Cap 50 Mg PO TID PRN Reported Hydrocodone-Acetaminophen 10-325 mg Tab 1 Tab PO TID PRN Clonidine (Clonidine HCl) 0.2 Mg Tab 0.2 Mg PO DAILY PRN Tums (Calcium Carbonate (Antacid)) 500 Mg Chew 500 Mg CHEW BID Alprazolam 0.5 Mg Tab 0.5 Mg PO BID Review of Systems General / Constitutional: No: Fever Eyes: No: Visual changes HENT: No: Headaches Cardiovascular: No: Chest Pain or Discomfort Respiratory: No: Shortness of Breath Gastrointestinal: No: Abdominal Pain Genitourinary: No: Dysuria Musculoskeletal: No: Pain Skin: No Rash Neurologic: Positive: Seizures Psychiatric: No: Depression Endocrine: No: Polydipsia Hematologic/Lymphatic: No: Easy Bruising Physical Exam Narrative GENERAL: SKIN: Warm and dry. HEAD: Atraumatic. Normocephalic. EYES: Pupils equal and round. No scleral icterus. No injection or drainage. ENT: No nasal bleeding or discharge. Mucous membranes pink and moist. NECK: Trachea midline. No JVD. CARDIOVASCULAR: Regular rate and rhythm. RESPIRATORY: No accessory muscle use. Clear to auscultation. Breath sounds equal bilaterally. GASTROINTESTINAL: Abdomen soft, non-tender, nondistended. MUSCULOSKELETAL: Extremities without clubbing, cyanosis, or edema. No obvious deformities. thrill on left ue c/w av fistula NEUROLOGICAL: Awake and alert. No obvious cranial nerve deficits. Motor grossly within normal limits. Five out of 5 muscle strength in the arms and legs. Normal speech. PSYCHIATRIC: Appropriate mood and affect; insight and judgment normal. Data Data Last Documented VS Vital Signs Date Time Temp Pulse Resp B/P (MAP) Pulse Ox O2 Delivery O2 Flow Rate FiO2 09/23/17 09:05 98.2 92 16 117/68 (84) 96 Orders Orders Electrocardiogram (09/23/17 09:30) Complete Blood Count With Diff (09/23/17 09:30) Basic Metabolic Panel (Bmp) (09/23/17 09:30) Magnesium (Mg) (09/23/17 09:30) Chest, Single Ap (09/23/17 09:30) Ct Brain W/O Iv Contrast(Rout) (09/23/17 09:30) Protein Corrected Calcium(Pcc) (09/23/17 09:30) Calcium Gluconate Inj (Calcium Gluconate (09/23/17 10:45) Labs Laboratory Tests Test 09/23/17 09:30 White Blood Count 5.0 TH/MM3 Red Blood Count 4.00 MIL/MM3 Hemoglobin 13.6 GM/DL Hematocrit 39.9 % Mean Corpuscular Volume 99.8 FL Mean Corpuscular Hemoglobin 34.0 PG Mean Corpuscular Hemoglobin Concent 34.0 % Red Cell Distribution Width 14.6 % Platelet Count 125 TH/MM3 Mean Platelet Volume 8.3 FL Neutrophils (%) (Auto) 72.1 % Lymphocytes (%) (Auto) 15.0 % Monocytes (%) (Auto) 5.7 % Eosinophils (%) (Auto) 5.6 % Basophils (%) (Auto) 1.6 % Neutrophils # (Auto) 3.6 TH/MM3 Lymphocytes # (Auto) 0.7 TH/MM3 Monocytes # (Auto) 0.3 TH/MM3 Eosinophils # (Auto) 0.3 TH/MM3 Basophils # (Auto) 0.1 TH/MM3 CBC Comment DIFF FINAL Differential Comment Blood Urea Nitrogen 53 MG/DL Creatinine 10.19 MG/DL Random Glucose 80 MG/DL Total Protein 8.1 GM/DL Calcium Level 6.3 MG/DL Magnesium Level 2.2 MG/DL Sodium Level 132 MEQ/L Potassium Level 4.6 MEQ/L Chloride Level 97 MEQ/L Carbon Dioxide Level 25.0 MEQ/L Anion Gap 10 MEQ/L Estimat Glomerular Filtration Rate 6 ML/MIN Protein Corrected Calcium 6.0 MG/DL [facility] Medical Decision Making Medical Screen Exam Complete: Yes Emergency Medical Condition: Yes Medical Record Reviewed: Yes Interpretation(s) EKG: Normal sinus rhythm, rate of 93, normal intervals, no peak T waves, no prolonged QT, no evidence of STEMI pattern noted Differential Diagnosis Intracranial hemorrhage versus intracranial mass versus electrolyte imbalance versus anemia Narrative Course The major finding today was that the patient had hypocalcemia corrected of 6.0, patient will be re-given replacement IV calcium. And also given a prescription for calcium and vitamin D and patient is stable for discharge and will be able to follow up in dialysis and continue replacement. Patient tolerated p.o. and is feeling well enough to go to his outpatient dialysis Diagnosis Primary Impression: Hypocalcemia Additional Impression: ESRD (end stage renal disease) on dialysis Patient Instructions: General Instructions, Hypocalcemia (ED) Additional Instructions: Please keep your appointment with your dialysis, and also contact your primary care doc or Dr. Galicia or your renal doctor for further management of your low calcium. Please fill your prescriptions as indicated Scripts Calcium Carbonate-Cholecalciferol (Calcium 600 with Vitamin D) 600-400 mg-Unit Tab 1 TAB PO DAILY for Calcium Supplement for 30 Days, #30 TAB 0 Refills Prov: Ced Martin MD 09/23/17 Ergocalciferol (Ergocalciferol) 50,000 Unit Cap 00706 UNITS PO Q7D for Nutritional Supplement, #10 CAP 0 Refills Prov: Ced Martin MD 09/23/17 Disposition: 01 DISCHARGE HOME Condition: Stable Ced Martin MD Sep 23, 2017 09:49
--- NOTE | 2017-09-23 10:02 | RADRPT ---
EXAM DATE/TIME: 09/23/2017 09:45 [facility] COMPARISON: CT BRAIN W/O CONTRAST, March 18, 2015, 3:14. INDICATIONS : Seizure RADIATION DOSE: 39.79 CTDIvol (mGy) MEDICAL HISTORY : Hypertension. Cardiovascular disease SURGICAL HISTORY : Right renal ransplant ENCOUNTER: Initial ACUITY: 1 day PAIN SCALE: 0/10 LOCATION: cranial TECHNIQUE: Multiple contiguous axial images were obtained of the head. Using automated exposure control and adj ustment of the mA and/or kV according to patient size, radiation dose was kept as low as reasonably a chievable to obtain optimal diagnostic quality images. DICOM format image data is available electro nically for review and comparison. FINDINGS: CEREBRUM: The ventricles are normal for age. No evidence of midline shift, mass lesion, hemorrhage or acute in farction. No extra-axial fluid collections are seen. POSTERIOR FOSSA: The cerebellum and brainstem are intact. The 4th ventricle is midline. The cerebellopontine angle i s unremarkable. EXTRACRANIAL: The visualized portion of the orbits is intact. SKULL: The calvaria is intact. No evidence of skull fracture. Opacified left maxillary sinus CONCLUSION: Intracranial contents unremarkable. Opacified left maxillary sinus. Addy Perera MD FACR on September 23, 2017 at 9:57 Board Certified Radiologist. This report was verified electronically.
[2017-09-23 10:04] LABS: AUTOMATED NEUTROPHIL # 3.6 TH/MM3 (1.8-7.7); BASOPHIL # 0.1 TH/MM3 (0-0.2); BASOPHIL % 1.6 % (0.0-2.0); EOSINOPHIL # 0.3 TH/MM3 (0-0.4); EOSINOPHIL % 5.6 % (0.0-4.0); HEMATOCRIT 39.9 % (39.0-51.0); HEMOGLOBIN 13.6 GM/DL (13.0-17.0); LYMPHOCYTE # 0.7 TH/MM3 (1.0-4.8); MEAN CELL VOLUME 99.8 FL (80.0-100.0); MEAN PLATELET VOLUME 8.3 FL (7.0-11.0); MONO % 5.7 % (0.0-8.0); MONOCYTE # 0.3 TH/MM3 (0-0.9); NEUT % 72.1 % (16.0-70.0); PLATELET COUNT 125 TH/MM3 (150-450); RED CELL DISTRIBUTION WIDTH 14.6 % (11.6-17.2)
--- NOTE | 2017-09-23 10:11 | RADRPT ---
EXAM DATE/TIME: 09/23/2017 09:51 [facility] COMPARISON: CHEST SINGLE AP, December 30, 2016, 13:45. INDICATIONS : Seizure. MEDICAL HISTORY : Renal disease, end stage. Congestive heart failure. Hypertension. SURGICAL HISTORY : Kidney transplant ENCOUNTER: Initial ACUITY: 1 day PAIN SCORE: 0/10 LOCATION: Bilateral chest FINDINGS: A single view of the chest demonstrates the lungs to be symmetrically aerated without evidence of mas s, infiltrate or effusion. The cardiomediastinal contours are unremarkable. Osseous structures are intact. CONCLUSION: No acute disease. Addy Perera MD FACR on September 23, 2017 at 10:09 Board Certified Radiologist. This report was verified electronically.
[2017-09-23 10:27] LABS: CALCIUM 6.3 MG/DL (8.5-10.1); MAGNESIUM 2.2 MG/DL (1.5-2.5)
[2017-09-23 10:38] LABS: TOTAL PROTEIN 8.1 GM/DL (6.4-8.2)
[2017-09-23 10:42] LABS: CREATININE 10.19 MG/DL (0.60-1.30)
[2017-09-23] MEDS ORDERED: CALCIUM GLUCONATE INJ 2 GM in SODIUM CHLORIDE 0.9% INJ 100 ML IV ONE (10:45)
[2017-09-23] MEDS ORDERED: VITA500012 PO (11:40)
[2017-09-23] MEDS ORDERED: CALC1TAB87 PO (11:40)
[2017-09-23 12:00] VITALS: BP 122/70; PULSE 88; RESP 17; O2SAT 99
--- NOTE | 2017-09-23 21:57 | EKG ---
Date Performed: 09/23/2017 Time Performed: 09:09:21 PTAGE: 42 years EKG: Sinus rhythm NORMAL ECG PREVIOUS TRACING : 09/14/2017 01.20 DOCTOR: Shalom Brush Interpretating Date/Time 09/23/2017 21:55:20
== END 2017-09-23 13:07 | disposition home or self-care (01) ==
LOC: NEPC 08:58
DX: E83.51 Hypocalcemia (principal); I13.2 Hypertensive heart and chronic kidney disease with heart failure and with stage 5 chronic kidney disease, or end stage renal disease; I50.9 Heart failure, unspecified; N18.6 End stage renal disease; F17.200 Nicotine dependence, unspecified, uncomplicated; Z99.2 Dependence on renal dialysis
CPT/HCPCS: 70450; 71045; 80048; 83735; 84155; 85025; 93005; 96365; 99285; J0610

== ENCOUNTER 2017-11-11 10:28 | Emergency (ER) | payer MEDICARE ==
[~2017-11-11] VITALS: Ht 167.6 cm; Wt 65.0 kg
[~2017-11-11 10:28] MED LIST changes: +CALC1TAB87 PO; -HYDR-3535 PO; +HYDR-3583 PO; +VITA500012 PO
[2017-11-11 11:43] VITALS: BP 142/65; PULSE 80; RESP 18; TEMP 98.1; O2SAT 98
[2017-11-11 12:34] LABS: BASOPHIL % 0.4 % (0.0-2.0); EOSINOPHIL # 0.3 TH/MM3 (0-0.4); EOSINOPHIL % 5.9 % (0.0-4.0); HEMATOCRIT 34.1 % (39.0-51.0); HEMOGLOBIN 11.4 GM/DL (13.0-17.0); LYMPH % 17.5 % (9.0-44.0); LYMPHOCYTE # 0.8 TH/MM3 (1.0-4.8); MEAN CELL VOLUME 97.8 FL (80.0-100.0); MEAN CORPUSCULAR HEMOGLOBIN 32.8 PG (27.0-34.0); MEAN CORPUSCULAR HGB CONC 33.5 % (32.0-36.0); MEAN PLATELET VOLUME 7.4 FL (7.0-11.0); MONO % 7.4 % (0.0-8.0); MONOCYTE # 0.3 TH/MM3 (0-0.9); NEUT % 68.8 % (16.0-70.0); PLATELET COUNT 146 TH/MM3 (150-450); RED BLOOD COUNT 3.49 MIL/MM3 (4.50-5.90); RED CELL DISTRIBUTION WIDTH 14.6 % (11.6-17.2); WHITE BLOOD COUNT 4.4 TH/MM3 (4.0-11.0)
[2017-11-11 12:43] LABS: INTERNATIONAL NORMALIZED RATIO 1.1 RATIO; PROTHROMBIN TIME - PATIENT 11.5 SEC (9.8-11.6)
--- NOTE | 2017-11-11 12:46 | RADRPT ---
EXAM DATE/TIME: 11/11/2017 12:20 [facility] COMPARISON: No previous studies available for comparison. INDICATIONS : Patient states shortness of breath. MEDICAL HISTORY : Renal disease, end stage. Congestive heart failure. Hypertension. SURGICAL HISTORY : Kidney transplant ENCOUNTER: Initial ACUITY: 1 day PAIN SCORE: 0/10 LOCATION: Bilateral chest FINDINGS: PA and lateral views of the chest demonstrate the lungs to be symmetrically aerated without evidence of mass, infiltrate or effusion. The cardiomediastinal contours are unremarkable. Bony changes relat ed to renal failure are noted. Degenerative changes and scoliosis of the thoraco-lumbar spine are not ed. CONCLUSION: No acute cardiopulmonary disease. Degenerative changes and scoliosis of the thoracolu mbar spine. Renal osteodystrophy. Eliot Simmons MD on November 11, 2017 at 12:43 Board Certified Radiologist. This report was verified electronically.
[2017-11-11 13:01] LABS: ALBUMIN 3.4 GM/DL (3.4-5.0); BICARBONATE 28.4 MEQ/L (21.0-32.0); CALCIUM 6.6 MG/DL (8.5-10.1); MAGNESIUM 2.1 MG/DL (1.5-2.5); TOTAL BILIRUBIN ADULT 0.7 MG/DL (0.2-1.0); TOTAL PROTEIN 7.5 GM/DL (6.4-8.2)
[2017-11-11 13:13] LABS: CALCIUM-PROTEIN CORRECTED 6.5 MG/DL (8.5-10.1); CREATININE 13.28 MG/DL (0.60-1.30)
[2017-11-11 13:41] VITALS: BP 152/72; PULSE 66; RESP 18; O2SAT 100
[2017-11-11] MEDS ORDERED: CALCIUM GLUCONATE INJ 2 GM in DEXTROSE 5% IN WATER 100ML INJ 100 ML IV ONE ×2 (14:00)
--- NOTE | 2017-11-11 14:52 | PD ---
HPI Chief Complaint: General Weakness Time Seen by Provider: 13:37 Travel History International Travel<30 days: No Contact w/Intl Traveler<30days: No Traveled to known affect area: No History of Present Illness HPI Patient is a 42-year-old male who comes in complaining of blurred vision and tingling to his lips and feet. He says that Saturday he was feeling unwell during dialysis, so he did not finish the session. He woke up this morning and felt like he really needed dialysis, so he tried to get an earlier appointment, but he cannot get in before 10:00 tonight. He says he thinks this is because his calcium is too low. He says that a month ago his calcium was too low and he passed out. He has a lot of nonspecific complaints. He says he has occasional chest pain and shortness of breath. He denies any headache. He denies fever or chills. Severity is mild to moderate. PFSH Past Medical History Anxiety: Yes Cancer: No Cardiovascular Problems: Yes (HTN) Congestive Heart Failure: Yes Dialysis: Yes (M,W,F) Diminished Hearing: No Endocrine: No Genitourinary: Yes Hypertension: Yes Immune Disorder: No Implanted Vascular Access Dvce: Yes (left forearm fisula graft ) Musculoskeletal: No Neurologic: No Psychiatric: Yes Reproductive: No Respiratory: No Immunizations Current: Yes Renal Failure: Yes Shingles: Yes Past Surgical History Abdominal Surgery: Yes (PERITONEAL DIALYSIS CATH INSERT/REMOVAL) Appendectomy: Yes Endocrine Surgery: Yes (right kidney transplant in 96 removed in 98 nonfunctional) Thoracic Surgery: Yes (PARATHYROID REMOVED) Other Surgery: Yes (several AV fisula's bilat arms-only current functional one is left FA) Social History Alcohol Use: No Tobacco Use: Yes (1 PPD) Substance Use: No Allergies-Medications (Allergen,Severity, Reaction): Coded Allergies: ciprofloxacin (Verified Allergy, Severe, THROAT SWELLS, 11/11/17) Reported Meds & Prescriptions Reported Meds & Active Scripts Active Calcium 600 with Vitamin D (Calcium Carbonate-Cholecalciferol) 600-400 mg-Unit Tab 1 Tab PO DAILY 30 Days Ergocalciferol 50,000 Unit Cap 50,000 Units PO Q7D Reported Hydrocodone-Acetaminophen 10-325 mg Tab 1 Tab PO TID PRN Clonidine (Clonidine HCl) 0.2 Mg Tab 0.2 Mg PO DAILY PRN Tums (Calcium Carbonate (Antacid)) 500 Mg Chew 500 Mg CHEW BID Alprazolam 0.5 Mg Tab 0.5 Mg PO BID Review of Systems Except as stated in HPI: all other systems reviewed are Neg General / Constitutional: No: Fever, Chills Eyes: Positive: Blurred Vision HENT: No: Headaches, Lightheadedness Gastrointestinal: No: Nausea, Vomiting Musculoskeletal: No: Edema, Pain Skin: No Rash, No Change in Pigmentation Physical Exam Narrative GENERAL: Awake and alert, in no acute distress. SKIN: Focused skin assessment warm/dry. HEAD: Atraumatic. Normocephalic. EYES: Pupils equal and round. No scleral icterus. No injection or drainage. ENT: No nasal bleeding or discharge. Mucous membranes pink and moist. NECK: Trachea midline. No JVD. CARDIOVASCULAR: Regular rate and rhythm. No murmur appreciated. RESPIRATORY: No accessory muscle use. Clear to auscultation. Breath sounds equal bilaterally. GASTROINTESTINAL: Abdomen soft, non-tender, nondistended. MUSCULOSKELETAL: No obvious deformities. No clubbing. No cyanosis. No edema. NEUROLOGICAL: Awake and alert. No obvious cranial nerve deficits. Motor grossly within normal limits. Normal speech. PSYCHIATRIC: Appropriate mood and affect; insight and judgment normal. Data Data Last Documented VS Vital Signs Date Time Temp Pulse Resp B/P (MAP) Pulse Ox O2 Delivery O2 Flow Rate FiO2 11/11/17 13:41 66 18 152/72 (98) 100 Room Air 11/11/17 11:43 98.1 Orders Orders Electrocardiogram (11/11/17 11:45) B-Type Natriuretic Peptide (11/11/17 11:45) Complete Blood Count With Diff (11/11/17 11:45) Comprehensive Metabolic Panel (11/11/17 11:45) Magnesium (Mg) (11/11/17 11:45) Prothrombin Time / Inr (Pt) (11/11/17 11:45) Act Partial Throm Time (Ptt) (11/11/17 11:45) Chest, Pa & Lat (11/11/17 11:45) Calcium Gluconate Inj (Calcium Gluconate (11/11/17 14:00) Ct Brain W/O Iv Contrast(Rout) (11/11/17 ) Labs Laboratory Tests Test 3/26/18 12:05 White Blood Count 4.4 TH/MM3 Red Blood Count 3.49 MIL/MM3 Hemoglobin 11.4 GM/DL Hematocrit 34.1 % Mean Corpuscular Volume 97.8 FL Mean Corpuscular Hemoglobin 32.8 PG Mean Corpuscular Hemoglobin Concent 33.5 % Red Cell Distribution Width 14.6 % Platelet Count 146 TH/MM3 Mean Platelet Volume 7.4 FL Neutrophils (%) (Auto) 68.8 % Lymphocytes (%) (Auto) 17.5 % Monocytes (%) (Auto) 7.4 % Eosinophils (%) (Auto) 5.9 % Basophils (%) (Auto) 0.4 % Neutrophils # (Auto) 3.0 TH/MM3 Lymphocytes # (Auto) 0.8 TH/MM3 Monocytes # (Auto) 0.3 TH/MM3 Eosinophils # (Auto) 0.3 TH/MM3 Basophils # (Auto) 0.0 TH/MM3 CBC Comment AUTO DIFF Differential Comment AUTO DIFF CONFIRMED Prothrombin Time 11.5 SEC Prothromb Time International Ratio 1.1 RATIO Activated Partial Thromboplast Time 31.3 SEC Blood Urea Nitrogen 51 MG/DL Creatinine 13.28 MG/DL Random Glucose 99 MG/DL Total Protein 7.5 GM/DL Albumin 3.4 GM/DL Calcium Level 6.6 MG/DL Magnesium Level 2.1 MG/DL Alkaline Phosphatase 80 U/L Aspartate Amino Transf (AST/SGOT) 20 U/L Alanine Aminotransferase (ALT/SGPT) 9 U/L Total Bilirubin 0.7 MG/DL Sodium Level 136 MEQ/L Potassium Level 4.4 MEQ/L Chloride Level 98 MEQ/L Carbon Dioxide Level 28.4 MEQ/L Anion Gap 10 MEQ/L Estimat Glomerular Filtration Rate 4 ML/MIN Protein Corrected Calcium 6.5 MG/DL B-Type Natriuretic Peptide 677 PG/ML MDM Medical Decision Making Medical Screen Exam Complete: Yes Emergency Medical Condition: Yes Medical Record Reviewed: Yes Differential Diagnosis Electrolyte abnormality versus fluid overload versus pneumonia Narrative Course Patient is a 42-year-old male comes in complaining of feeling unwell. He says he felt similar to this when his calcium was low in the past. Labs sent from triage do show a low calcium. Patient mention some chest pain, but he says he is not concerned about this and does not wish to stay in the hospital. Chest x- ray performed shows no evidence of fluid overload. Calcium replaced and patient reports feeling better. He'll be discharged to attend his dialysis session tonight. Advised to return any time for any worsening symptoms. Diagnosis Primary Impression: Hypocalcemia Patient Instructions: General Instructions, Hypocalcemia (ED) Additional Instructions: Make sure you attend dialysis tonight as scheduled. Take her calcium supplements as prescribed. Follow-up with her doctors. Return to the ED as needed for any worsening symptoms. Disposition: 01 DISCHARGE HOME Condition: Stable Kimberlyn Zhu MD Nov 11, 2017 14:52
--- NOTE | 2017-11-11 15:48 | RADRPT ---
EXAM DATE/TIME: 11/11/2017 15:39 [facility] COMPARISON: CT BRAIN W/O CONTRAST, September 23, 2017, 9:45. INDICATIONS : Dizziness, fatigued RADIATION DOSE: 39.17 CTDIvol (mGy) MEDICAL HISTORY : Congestive heart failure. Hypertension. Renal failure SURGICAL HISTORY : None. ENCOUNTER: Initial ACUITY: 1 day PAIN SCALE: 4/10 LOCATION: Head. TECHNIQUE: Multiple contiguous axial images were obtained of the head. Using automated exposure control and adj ustment of the mA and/or kV according to patient size, radiation dose was kept as low as reasonably a chievable to obtain optimal diagnostic quality images. DICOM format image data is available electro nically for review and comparison. FINDINGS: CEREBRUM: The ventricles are normal for age. No evidence of midline shift, mass lesion, hemorrhage or acute in farction. No extra-axial fluid collections are seen. POSTERIOR FOSSA: The cerebellum and brainstem are intact. The 4th ventricle is midline. The cerebellopontine angle i s unremarkable. EXTRACRANIAL: The visualized portion of the orbits is intact. There is mucosal thickening is again noted in the lef t maxillary sinus with near total opacification. SKULL: The calvaria is intact. No evidence of skull fracture. CONCLUSION: Negative noncontrast head CT. Significant mucosal thickening remains in the left maxi llary sinus. Sarbjit Fournier MD on November 11, 2017 at 15:44 Board Certified Radiologist. This report was verified electronically.
--- NOTE | 2017-11-11 23:59 | EKG ---
Date Performed: 11/11/2017 Time Performed: 12:00:25 PTAGE: 42 years EKG: Sinus rhythm NORMAL ECG PREVIOUS TRACING : 09/23/2017 09.09 DOCTOR: Shalom Brush Interpretating Date/Time 11/11/2017 23:56:58
== END 2017-11-11 17:32 | disposition home or self-care (01) ==
LOC: NED 10:28 → NEPE 17:32
DX: E83.51 Hypocalcemia (principal); I13.2 Hypertensive heart and chronic kidney disease with heart failure and with stage 5 chronic kidney disease, or end stage renal disease; F17.200 Nicotine dependence, unspecified, uncomplicated; N18.6 End stage renal disease; I50.9 Heart failure, unspecified; Z99.2 Dependence on renal dialysis
CPT/HCPCS: 70450; 71046; 80053; 83735; 83880; 85025; 85610; 85730; 93005; 96365; 99285; J0610

== ENCOUNTER 2018-01-20 22:12 | Emergency (ER) | payer MEDICARE ==
[~2018-01-20 22:12] MED LIST changes: -VIST50CA PO
[2018-01-20 23:14] VITALS: BP 174/81; PULSE 89; RESP 16; TEMP 98.8; O2SAT 100
[2018-01-21 01:37] LABS: AUTOMATED NEUTROPHIL # 2.9 TH/MM3 (1.8-7.7); BASOPHIL % 0.7 % (0.0-2.0); EOSINOPHIL # 0.6 TH/MM3 (0-0.4); EOSINOPHIL % 10.5 % (0.0-4.0); HEMATOCRIT 35.5 % (39.0-51.0); HEMOGLOBIN 11.9 GM/DL (13.0-17.0); LYMPH % 23.3 % (9.0-44.0); LYMPHOCYTE # 1.2 TH/MM3 (1.0-4.8); MEAN CELL VOLUME 101.6 FL (80.0-100.0); MEAN CORPUSCULAR HGB CONC 33.4 % (32.0-36.0); MEAN PLATELET VOLUME 7.4 FL (7.0-11.0); MONO % 10.1 % (0.0-8.0); MONOCYTE # 0.5 TH/MM3 (0-0.9); NEUT % 55.4 % (16.0-70.0); PLATELET COUNT 137 TH/MM3 (150-450); RED BLOOD COUNT 3.49 MIL/MM3 (4.50-5.90); RED CELL DISTRIBUTION WIDTH 14.9 % (11.6-17.2); WHITE BLOOD COUNT 5.3 TH/MM3 (4.0-11.0)
[2018-01-21 01:46] LABS: INTERNATIONAL NORMALIZED RATIO 1.1 RATIO
--- NOTE | 2018-01-21 01:54 | RADRPT ---
EXAM DATE: 01/21/2018 1:44 AM EDT AGE/SEX: 43 years / Male INDICATIONS: Short of breath. CLINICAL DATA: This is the patient's initial encounter. Patient reports that signs and symptoms have been present for 1 day and indicates a pain score of 0/10. MEDICAL/SURGICAL HISTORY: None. None. Best image possible. COMPARISON: [facility] [place] & LAT, 11/11/2017. . FINDINGS: A single AP view of the chest demonstrates the lungs to be symmetrically aerated without evidence of mass, infiltrate or effusion. There is hyperaeration bilaterally. The cardiomediastinal contours are unremarkable. Osseous structures are intact. No significant changes. CONCLUSION: No acute pulmonary infiltrates. Stable exam compared to the prior study. Electronically signed by: Fito Keene MD 01/21/2018 1:52 AM EDT
--- NOTE | 2018-01-21 01:57 | PD ---
HPI Chief Complaint: Complaint Time Seen by Provider: 01:05 Travel History International Travel<30 days: No Contact w/Intl Traveler<30days: No Traveled to known affect area: No History of Present Illness HPI The patient is a 43 year old male who presents to the [facility] emergency department with a history of reportedly being unable to do his dialysis earlier today. He reports that he receives his dialysis at [facility] on a nightly basis related to his work schedule on Saturday, Saturday, and Saturday. He reports that he last received his dialysis on Saturday. He reports that on Saturday he showed up for his usual dialysis and was told that there was a problem with their machine. He was instructed to go to the emergency department if he needed dialysis acutely. The patient reports that he was having some dyspnea on exertion and tingling of his lips, therefore he decided to come to the emergency department for evaluation. He denies having any chest pain or chest pressure. He denies having any recent fevers. He reports that his dialysis physician is . He reports that he has been on hemodialysis for 20+ years. On review of systems otherwise, the patient denies having any cough, congestion, neck pain, chest pain, shortness of breath, abdominal pain, vomiting , diarrhea, urinary symptoms, or neurologic symptoms. [facility] Past Medical History Narrative Medical The patient's past medical history is significant for hypertension, history of pulmonary edema, history of chronic renal failure on hemodialysis on Saturday, Saturday, Saturday, shingles, anxiety disorder Anxiety: Yes Cancer: No Cardiovascular Problems: Yes (HTN) Congestive Heart Failure: Yes Dialysis: Yes (M,W,F) Diminished Hearing: No Endocrine: No Genitourinary: Yes Hypertension: Yes Immune Disorder: No Implanted Vascular Access Dvce: Yes (left forearm fisula graft ) Musculoskeletal: No Neurologic: No Psychiatric: Yes Reproductive: No Respiratory: No Immunizations Current: Yes Renal Failure: Yes Shingles: Yes Tetanus Vaccination: > 5 Years Influenza Vaccination: Yes Past Surgical History Narrative Surgical The patient's past surgical history is significant for AV fistula placement left upper extremity, peritoneal dialysis catheter placement and then removal, appendectomy, parathyroidectomy, kidney transplant and then removal due to being nonfunctional. Abdominal Surgery: Yes (PERITONEAL DIALYSIS CATH INSERT/REMOVAL) Appendectomy: Yes Endocrine Surgery: Yes (right kidney transplant in 96 removed in 98 nonfunctional) Thoracic Surgery: Yes (PARATHYROID REMOVED) Other Surgery: Yes (several AV fisula's bilat arms-only current functional one is left FA) Social History Alcohol Use: No Tobacco Use: Yes (1 PPD) Substance Use: No Allergies-Medications (Allergen,Severity, Reaction): Coded Allergies: ciprofloxacin (Verified Allergy, Severe, THROAT SWELLS, 01/20/18) Reported Meds & Prescriptions Reported Meds & Active Scripts Active Calcium 600 with Vitamin D (Calcium Carbonate-Cholecalciferol) 600-400 mg-Unit Tab 1 Tab PO DAILY 30 Days Ergocalciferol 50,000 Unit Cap 50,000 Units PO Q7D Reported Hydrocodone-Acetaminophen 10-325 mg Tab 1 Tab PO TID PRN Clonidine (Clonidine HCl) 0.2 Mg Tab 0.2 Mg PO DAILY PRN Tums (Calcium Carbonate (Antacid)) 500 Mg Chew 500 Mg CHEW BID Alprazolam 0.5 Mg Tab 0.5 Mg PO BID Review of Systems Except as stated in HPI: all other systems reviewed are Neg General / Constitutional: No: Fever Eyes: No: Visual changes HENT: Positive: Other (Tingling sensations around his mouth), No: Headaches Cardiovascular: No: Chest Pain or Discomfort Respiratory: Positive: Shortness of Breath Gastrointestinal: No: Abdominal Pain Genitourinary: No: Dysuria Musculoskeletal: No: Pain Skin: No Rash Neurologic: Positive: Paresthesia, No: Weakness, Focal Abnormalities, Change in Mentation, Slurred Speech, Sensory Disturbance Psychiatric: No: Depression Endocrine: No: Polydipsia Hematologic/Lymphatic: No: Easy Bruising Physical Exam Narrative General: The patient is a well-developed well-nourished male in no acute distress. Head and Neck exam: Head is normocephalic atraumatic. Eyes: EOMI, pupils are equal round and reactive to light. Nose: Midline septum with pink mucous membranes Mouth: Dentition unremarkable. Moist mucus membranes. Posterior oropharynx is not erythematous. No tonsillar hypertrophy. Uvula midline. Airway patent. Neck: No palpable lymphadenopathy. No nuchal rigidity. No thyromegaly. Cardiovascular: Regular rate and rhythm without murmurs, gallops, or rubs. No pulse deficit to the extremities on simultaneous auscultation and palpation of his radial artery. Lungs: Clear to auscultation bilaterally. No wheezes, rhonchi, or rales. Abdomen: Soft, without tenderness to palpation in all 4 quadrants of the abdomen. No guarding, rebound, or rigidity. Normal bowel sounds are audible. No tenderness on palpation of McBurney's point. Negative Medrano sign. Extremities: No clubbing, cyanosis, or edema. 2+ pulses in all 4 extremities. The patient has an AV fistula in place in the left upper extremity that appears to be in good repair with a palpable thrill. No overlying erythema or drainage. Back: No spinous process tenderness to palpation. Neurologic Exam: Grossly nonfocal. Skin Exam: No rash noted. Intact skin that is warm and dry. Data Data Last Documented VS Vital Signs Date Time Temp Pulse Resp B/P (MAP) Pulse Ox O2 Delivery O2 Flow Rate FiO2 01/20/18 23:14 98.8 89 16 174/81 (112) 100 Orders Orders Complete Blood Count With Diff (01/21/18 01:07) Basic Metabolic Panel (Bmp) (01/21/18 01:07) Prothrombin Time / Inr (Pt) (01/21/18 01:07) Act Partial Throm Time (Ptt) (01/21/18 01:07) Chest, Single Ap (01/21/18 01:07) Iv Access Insert/Monitor (01/21/18 01:07) Ecg Monitoring (01/21/18 01:07) Oximetry (01/21/18 01:07) Ed Discharge Order (01/21/18 03:24) Labs Laboratory Tests Test 01/21/18 01:20 White Blood Count 5.3 TH/MM3 Red Blood Count 3.49 MIL/MM3 Hemoglobin 11.9 GM/DL Hematocrit 35.5 % Mean Corpuscular Volume 101.6 FL Mean Corpuscular Hemoglobin 34.0 PG Mean Corpuscular Hemoglobin Concent 33.4 % Red Cell Distribution Width 14.9 % Platelet Count 137 TH/MM3 Mean Platelet Volume 7.4 FL Neutrophils (%) (Auto) 55.4 % Lymphocytes (%) (Auto) 23.3 % Monocytes (%) (Auto) 10.1 % Eosinophils (%) (Auto) 10.5 % Basophils (%) (Auto) 0.7 % Neutrophils # (Auto) 2.9 TH/MM3 Lymphocytes # (Auto) 1.2 TH/MM3 Monocytes # (Auto) 0.5 TH/MM3 Eosinophils # (Auto) 0.6 TH/MM3 Basophils # (Auto) 0.0 TH/MM3 CBC Comment DIFF FINAL Differential Comment Prothrombin Time 11.0 SEC Prothromb Time International Ratio 1.1 RATIO Activated Partial Thromboplast Time 29.4 SEC Blood Urea Nitrogen 60 MG/DL Creatinine 12.05 MG/DL Random Glucose 91 MG/DL Calcium Level 8.1 MG/DL Sodium Level 138 MEQ/L Potassium Level 4.3 MEQ/L Chloride Level 98 MEQ/L Carbon Dioxide Level 26.7 MEQ/L Anion Gap 13 MEQ/L Estimat Glomerular Filtration Rate 5 ML/MIN MDM Medical Decision Making Medical Screen Exam Complete: Yes Emergency Medical Condition: Yes Medical Record Reviewed: Yes Differential Diagnosis Electrolyte derangements, versus pulmonary edema, versus anxiety disorder Narrative Course During the course of the patient's emergency department visit, the patient's history, examination, and differential diagnosis were reviewed with the patient. The patient was placed on a inspector toys with oximetry and frequent blood pressure monitoring. The patient had IV access obtained and blood work sent for analysis. The patient's laboratory studies were reviewed and remarkable for white count of 5.3, hemoglobin 11.9, platelets 137 with 10.1- monocytes, basic metabolic profile is remarkable for BUN is 60, creatinine 12.05, calcium 8.1, PT PTT within normal limits. Radiology studies were reviewed and remarkable for a chest x-ray that shows no pulmonary infiltrates, stable exam compared to prior study. I spoke to Dr. Galicia at 3:20 AM regarding this patient's case, he recommended that the patient call the dialysis clinic at 5 AM when they open again or after 5 AM later today to try to set up another session for the missed dialysis last night as the patient has no acute abnormalities involving his electrolytes, and no fluid overload on his chest x-ray The patient is resting comfortably and feels better, is alert and in no distress. The patient's results and examination findings were discussed with the patient. The repeat examination is unremarkable and benign. The history, exam, diagnostic testing, and current condition do not suggest any significant pathology to warrant further testing, continued ED treatment, admission, or surgical evaluation at this point. The vital signs have been stable. The patient does not have uncontrollable pain, intractable vomiting, or other significant symptoms. The patient's condition is stable and appropriate for discharge. The patient will pursue further outpatient evaluation with a primary care physician or other designated or consulting physician as indicated in the discharge instructions. The patient is instructed to report back to the emergency department immediately for reexamination in the mean time if he develops any new or worsening signs or symptoms. The patient expressed understanding and was agreeable with this plan. Diagnosis Primary Impression: Paresthesia Referrals: Dialysis Patient Instructions: General Instructions, Paresthesia (ED) Additional Instructions: Called the [facility] later today after 5 AM to schedule a dialysis session due to your missed dialysis last night due to the equipment failure. Disposition: 01 DISCHARGE HOME Condition: Stable Ann Ace MD Jan 21, 2018 01:57
[2018-01-21 02:19] LABS: BICARBONATE 26.7 MEQ/L (21.0-32.0); CALCIUM 8.1 MG/DL (8.5-10.1)
[2018-01-21 02:31] LABS: CREATININE 12.05 MG/DL (0.60-1.30)
== END 2018-01-21 03:47 | disposition home or self-care (01) ==
LOC: NEPC 22:12
DX: R20.2 Paresthesia of skin (principal); F17.200 Nicotine dependence, unspecified, uncomplicated; I13.2 Hypertensive heart and chronic kidney disease with heart failure and with stage 5 chronic kidney disease, or end stage renal disease; I50.9 Heart failure, unspecified; N18.6 End stage renal disease; Z99.2 Dependence on renal dialysis
CPT/HCPCS: 71045; 80048; 85025; 85610; 85730; 99284

== ENCOUNTER 2018-02-05 08:51 | Emergency (ER) | payer MEDICARE ==
[~2018-02-05] VITALS: Ht 170.2 cm; Wt 66.0 kg
[2018-02-05 08:58] VITALS: BP 149/70; PULSE 84; RESP 18; O2SAT 98
--- NOTE | 2018-02-05 09:52 | PD ---
HPI Chief Complaint: Seizure Time Seen by Provider: 09:35 Travel History International Travel<30 days: No Contact w/Intl Traveler<30days: No Traveled to known affect area: No History of Present Illness HPI This patient reports that he has a seizure this morning. This was witnessed by coworkers. He is unaware of any details. Apparently they saw him shaking. He did bruise his tongue during the event. No urinary incontinence. He says that he has had seizures before due to hypocalcemia. His last was about 3 months ago. He takes no seizure medications. He has been a dialysis patient for 20 years. He is due to get dialyzed at 830pm tonight he says. Symptom severity was moderate. He does feel improved now. No alleviating factors. No exacerbating factors. PFSH Past Medical History Anxiety: Yes Cancer: No Cardiovascular Problems: Yes (HTN, CHF) Congestive Heart Failure: Yes Dialysis: Yes (M,W,F) Diminished Hearing: No Endocrine: Yes (PARATHYROID REMOVED) Genitourinary: Yes Hypertension: Yes Immune Disorder: No Implanted Vascular Access Dvce: Yes (left forearm fisula graft ) Musculoskeletal: No Neurologic: No Psychiatric: Yes Reproductive: No Respiratory: No Immunizations Current: Yes Renal Failure: Yes (NO KIDNEYS) Shingles: Yes Tetanus Vaccination: < 5 Years Past Surgical History Abdominal Surgery: Yes (PERITONEAL DIALYSIS CATH INSERT/REMOVAL) Appendectomy: Yes Endocrine Surgery: Yes (PARATHYROID ) Genitourinary Surgery: Yes (right kidney transplant in 96 removed in 98 nonfunctional) Thoracic Surgery: Yes (PARATHYROID REMOVED) Other Surgery: Yes (several AV fisula's bilat arms-only current functional one is left FA) Social History Alcohol Use: No Tobacco Use: Yes (1 PPD) Substance Use: No Allergies-Medications (Allergen,Severity, Reaction): Coded Allergies: ciprofloxacin (Verified Allergy, Severe, THROAT SWELLS, 02/05/18) Reported Meds & Prescriptions Reported Meds & Active Scripts Active Calcium 600 with Vitamin D (Calcium Carbonate-Cholecalciferol) 600-400 mg-Unit Tab 1 Tab PO DAILY 30 Days Ergocalciferol 50,000 Unit Cap 50,000 Units PO Q7D Reported Hydrocodone-Acetaminophen 10-325 mg Tab 1 Tab PO TID PRN Clonidine (Clonidine HCl) 0.2 Mg Tab 0.2 Mg PO DAILY PRN Tums (Calcium Carbonate (Antacid)) 500 Mg Chew 500 Mg CHEW BID Alprazolam 0.5 Mg Tab 0.5 Mg PO BID Review of Systems General / Constitutional: No: Fever Eyes: No: Visual changes HENT: No: Headaches Cardiovascular: No: Chest Pain or Discomfort Respiratory: No: Shortness of Breath Gastrointestinal: No: Abdominal Pain Genitourinary: No: Dysuria Musculoskeletal: No: Pain Skin: No Rash Neurologic: Positive: Seizures, No: Weakness Psychiatric: No: Depression Endocrine: No: Polydipsia Hematologic/Lymphatic: No: Easy Bruising Physical Exam Narrative GENERAL: Well-nourished, well-developed patient in no apparent distress. SKIN: Focused skin assessment reveals no rash and nodules. Skin is Warm and dry. HEAD: Atraumatic. Normocephalic. EYES: Pupils equal and round. No scleral icterus. No injection or drainage. ENT: No nasal bleeding or discharge. Mucous membranes pink and moist. Slight bruising to the left lateral part of the tongue but no laceration NECK: Trachea midline. No JVD. CARDIOVASCULAR: Regular rate and rhythm. No murmur appreciated. RESPIRATORY: No accessory muscle use. Clear to auscultation. Breath sounds equal bilaterally. GASTROINTESTINAL: Abdomen soft, non-tender, nondistended. Hepatic and splenic margins not palpable. MUSCULOSKELETAL: No obvious deformities. No clubbing. No cyanosis. No edema. NEUROLOGICAL: Awake and alert. No obvious cranial nerve deficits. Motor grossly within normal limits. Normal speech. PSYCHIATRIC: Appropriate mood and affect; insight and judgment normal. Data Data Last Documented VS Vital Signs Date Time Temp Pulse Resp B/P (MAP) Pulse Ox O2 Delivery O2 Flow Rate FiO2 02/05/18 16:21 72 16 207/91 (129) 96 02/05/18 13:06 Room Air Orders Orders Iv Access Insert/Monitor (02/05/18 09:46) Complete Blood Count With Diff (02/05/18 09:46) Basic Metabolic Panel (Bmp) (02/05/18 09:46) Lorazepam (Ativan) (02/05/18 10:00) Protein Corrected Calcium(Pcc) (02/05/18 09:05) Calcium Chloride Inj (Calcium Chloride I (02/05/18 13:15) Calcium Chloride Inj (Calcium Chloride I (02/05/18 14:45) Labs Laboratory Tests Test 02/05/18 09:05 White Blood Count 3.3 TH/MM3 Red Blood Count 3.54 MIL/MM3 Hemoglobin 12.0 GM/DL Hematocrit 36.1 % Mean Corpuscular Volume 102.0 FL Mean Corpuscular Hemoglobin 34.0 PG Mean Corpuscular Hemoglobin Concent 33.3 % Red Cell Distribution Width 14.1 % Platelet Count 129 TH/MM3 Mean Platelet Volume 8.1 FL Neutrophils (%) (Auto) 70.9 % Lymphocytes (%) (Auto) 14.0 % Monocytes (%) (Auto) 6.9 % Eosinophils (%) (Auto) 8.0 % Basophils (%) (Auto) 0.2 % Neutrophils # (Auto) 2.3 TH/MM3 Lymphocytes # (Auto) 0.5 TH/MM3 Monocytes # (Auto) 0.2 TH/MM3 Eosinophils # (Auto) 0.3 TH/MM3 Basophils # (Auto) 0.0 TH/MM3 CBC Comment DIFF FINAL Differential Comment Blood Urea Nitrogen 29 MG/DL Creatinine 8.79 MG/DL Random Glucose 73 MG/DL Total Protein 7.9 GM/DL Calcium Level 7.1 MG/DL Sodium Level 137 MEQ/L Potassium Level 4.4 MEQ/L Chloride Level 99 MEQ/L Carbon Dioxide Level 24.4 MEQ/L Anion Gap 14 MEQ/L Estimat Glomerular Filtration Rate 7 ML/MIN Protein Corrected Calcium 6.8 MG/DL [facility] Medical Decision Making Medical Screen Exam Complete: Yes Emergency Medical Condition: Yes Medical Record Reviewed: Yes Differential Diagnosis Hypocalcemia, hyponatremia, tremor, anxiety, seizure Narrative Course I have reviewed the patient's electronic medical record. Patient was here 15 days ago and I reviewed that record IV placed and labs sent Gave him a dose of Ativan Is neurologically intact Metabolic studies reviewed. He is hypocalcemic at 6.8 on protein corrected calcium. I gave him a total of 2 g IV calcium chloride I observed him for hours and he has had no recurrent symptoms. He feels fine and wants to go home. In fact he is insistent upon it. I wanted to get a repeat calcium to confirm his level is improved but he absolutely refused so he is leaving. He will get dialysis tonight as scheduled. Diagnosis Primary Impression: Hypocalcemia Additional Impressions: ESRD (end stage renal disease) on dialysis Seizure Additional Instructions: Go to dialysis tonight as scheduled The patient was advised to follow up with their physician and return if they worsen. Med/Other Pt SpecificInfo: Other Disposition: 01 DISCHARGE HOME Condition: Stable Yung Alaniz MD Feb 05, 2018 09:52
[2018-02-05] MEDS ORDERED: LORazepam 1 MG TAB PO ONE (10:00)
[2018-02-05 10:38] LABS: AUTOMATED NEUTROPHIL # 2.3 TH/MM3 (1.8-7.7); BASOPHIL % 0.2 % (0.0-2.0); EOSINOPHIL # 0.3 TH/MM3 (0-0.4); HEMATOCRIT 36.1 % (39.0-51.0); LYMPHOCYTE # 0.5 TH/MM3 (1.0-4.8); MEAN CORPUSCULAR HGB CONC 33.3 % (32.0-36.0); MEAN PLATELET VOLUME 8.1 FL (7.0-11.0); MONO % 6.9 % (0.0-8.0); MONOCYTE # 0.2 TH/MM3 (0-0.9); NEUT % 70.9 % (16.0-70.0); PLATELET COUNT 129 TH/MM3 (150-450); RED BLOOD COUNT 3.54 MIL/MM3 (4.50-5.90); RED CELL DISTRIBUTION WIDTH 14.1 % (11.6-17.2); WHITE BLOOD COUNT 3.3 TH/MM3 (4.0-11.0)
[2018-02-05 11:03] LABS: BICARBONATE 24.4 MEQ/L (21.0-32.0); CALCIUM 7.1 MG/DL (8.5-10.1); CREATININE 8.79 MG/DL (0.60-1.30)
[2018-02-05 11:53] LABS: TOTAL PROTEIN 7.9 GM/DL (6.4-8.2)
[2018-02-05 11:59] LABS: CALCIUM-PROTEIN CORRECTED 6.8 MG/DL (8.5-10.1)
[2018-02-05] MEDS ORDERED: CALCIUM GLUCONATE INJ 2 GM in DEXTROSE 5% IN WATER 100ML INJ 100 ML IV ONE ×2 (12:00)
[2018-02-05 13:06] VITALS: PULSE 75; RESP 16; O2SAT 98
[2018-02-05] MEDS ORDERED: CALCIUM CHLORIDE INJ 1 GM in DEXTROSE 5% IN WATER 100ML INJ 100 ML IV ONE ×4 (13:15→14:45)
[2018-02-05 16:21] VITALS: BP 207/91
== END 2018-02-05 16:21 | disposition home or self-care (01) ==
LOC: NEPC 08:51
DX: E83.51 Hypocalcemia (principal); R56.9 Unspecified convulsions; I13.2 Hypertensive heart and chronic kidney disease with heart failure and with stage 5 chronic kidney disease, or end stage renal disease; N18.6 End stage renal disease; I50.9 Heart failure, unspecified; F41.9 Anxiety disorder, unspecified; F17.200 Nicotine dependence, unspecified, uncomplicated; Z99.2 Dependence on renal dialysis; Z90.5 Acquired absence of kidney; Z79.899 Other long term (current) drug therapy
CPT/HCPCS: 80048; 84155; 85025; 96365; 96366